=== PATIENT | female | born 1995 | race Caucasian/White ===

== ENCOUNTER → 2017-09-30 17:35 | Outpatient (REF) | payer OTHER, SELFPAY ==
[2017-10-03 15:31] LABS: Neisseria gonorrhoeae, NAA Negative (Negative)
== END ==
LOC: LAB 17:35
PROVIDERS: Visit Provider Nurse Practitioner Obstetrics & Gynecology
DX: Z11.3 Encounter for screening for infections with a predominantly sexual mode of transmission (principal); Z00.00 Encounter for general adult medical examination without abnormal findings
CPT/HCPCS: 87491; 87591

== ENCOUNTER 2019-12-03 06:57 | Emergency (ER) | payer MEDICAID, SELFPAY ==
[2019-12-03 06:58] VITALS: BP 140/82; PULSE 102; RESP 16; TEMP 37.1; O2SAT 98; BMI 22.6
--- NOTE | 2019-12-03 07:14 | US_ITS ---
PROCEDURE: US OB TRANSVAGINAL CLINICAL INDICATION: 8weeks preg vag bleeding COMPARISON: No exams were available for comparison FINDINGS: There is an intrauterine gestational sac with what appears to be a collapsed yolk sac along with an additional thin curvilinear echogenicity. A definite pole is not identified. No heart tones are evident. Cannot confirm viability at this time. Unremarkable adnexa. IMPRESSION: Intrauterine gestational sac with possible collapsed yolk sac. Cannot confirm viability. Recommend follow-up ultrasound as well as correlation with serial beta HCGs Dictated by: Presley Tony MD 12/03/2019 11:03 Electronically signed by Presley Tony MD in [place] 12/03/2019 11:03
[2019-12-03 07:28] LABS: Basophils # 0.1 K/mm3 (0-0.2); Basophils % 0.6 % (0.1-2.0); Eosinophils # 0.5 K/mm3 (0.0-0.4); Eosinophils % 3.7 % (0.1-12.0); Hematocrit 42.4 % (37.0-47.0); Hemoglobin 14.1 g/dL (12.2-16.2); Lymphocytes # 3.9 K/mm3 (0.7-4.5); Lymphocytes % 29.5 % (10-50); Mean Corpuscular HGB Conc 33.4 g/dL (31.8-35.4); Mean Corpuscular Hemoglobin 30.7 pg (27.0-31.2); Mean Platelet Volume 8.5 fl (7.4-10.4); Monocytes # 0.6 K/mm3 (0.1-1.0); Monocytes % 4.3 % (1.7-9.3); Neutrophils # 8.2 K/mm3 (1.8-7.8); Neutrophils % 61.9 % (37.0-80.0); Platelet Count 239 K/mm3 (142-424); Red Blood Count 4.61 M/mm3 (4.20-5.40); Red Cell Distribution Width 12.9 % (11.5-17.5); White Blood Count 13.2 K/mm3 (4.8-10.8)
[2019-12-03 07:34] LABS: Microscopic, Urine URINE MICROSCOPIC (MICROSCOPIC)
[2019-12-03 07:35] LABS: Appearance,Urine CLOUDY (Clear); Bilirubin,Urine Negative (Negative); Blood, Urine 3+ (Negative); Color,Urine YELLOW (Yellow); Glucose,Urine (UA) Negative (Negative); Ketones,Urine Negative (Negative); Leukocyte Esterase,Urine Negative (Negative); Nitrate,Urine Negative (Negative); Protein,Urine Negative (Negative); Specific Gravity, Urine >= 1.030 (1.005-1.030); Urobilinogen,Urine 0.2 EU/dl (0.2)
[2019-12-03 07:37] LABS: Urine Pregnancy, HCG Qual. Positive (Negative)
[2019-12-03 07:45] LABS: HCG,Quantitative 10597 mIU/ml (0-5.42)
[2019-12-03 07:49] LABS: Bacteria,Urine 1+ /lpf; Mucus,Urine Trace /lpf
--- NOTE | 2019-12-03 09:03 | HMH.EDABDPAI ---
ED Disposition Clinical Impression: Vaginal bleeding Disposition: Home, Self-Care Condition on Discharge: Good Instructions: DI for Acute Abdomen Additional Instructions: Your appointment Dr. Prather is this Saturday at 915. Referrals: Provider,Referral, [Primary Care Provider] - - Critical Care Critical Care Time: No Attestation: On 12/03/19, the high probability of a clinically significant, sudden or life threatening deterioration of the following system(s) required my full and direct attention, intervention and personal management. The time I documented below is in addition to time spent performing reported procedures but includes the following listed in this critical care notation. Medical Decision Making - Medical Records Medical records reviewed: Yes: I reviewed the patient's medical records. - Ian Inquiry Pt receiving controlled substance: No Vital Signs: 12/03/19 06:58 Temperature 98.7 F Temperature Source Oral Pulse Rate [Radial] 102 H Respiratory Rate 16 Blood Pressure [Right Arm] 140/82 Blood Pressure Mean [Right Arm] 101 Blood Pressure Position [Right Arm] Sitting 02 Sat by Pulse Oximetry 98 Oxygen Delivery Method Room Air - Lab Data Lab results reviewed: Yes: I reviewed the patient's lab results. Lab Results 12/03/19 07:07: WBC 13.2 H, RBC 4.61, Hgb 14.1, Hct 42.4, MCV 92.0, MCH 30.7, MCHC 33.4, RDW 12.9, Plt Count 239, MPV 8.5, Neut % (Auto) 61.9, Lymph % (Auto) 29.5, [place] % (Auto) 4.3, Eos % (Auto) 3.7, Baso % (Auto) 0.6, Neut # (Auto) 8.2 H, Lymph # (Auto) 3.9, [place] # (Auto) 0.6, Eos # (Auto) 0.5 H, Baso # (Auto) 0.1 12/03/19 07:07: HCG, Quant [id number] H 12/03/19 07:30: Urine Color Yellow, Urine Appearance Cloudy, Urine pH 6.0, Ur Specific [place] >= 1.030, Urine Protein Negative, Urine Glucose (UA) Negative, Urine Ketones Negative, Urine Blood 3+, Urine Nitrate Negative, Urine Bilirubin Negative, Urine Urobilinogen 0.2, Ur Leukocyte Esterase Negative, Urine RBC 10-20, Urine WBC 5-10, Ur Squamous Epith Cells 10-20, Urine Bacteria 1+, Urine Mucus Trace 12/03/19 07:30: Blood Type A Positive 12/03/19 07:30: Urine HCG, Qual Positive Result diagrams: 12/03/19 07:07 Orders (Tests/Meds): ED MEDICATIONS Discontinued Medications Generic Name Dose Route Start Last Admin Trade Name Freq PRN Reason Stop Dose Admin Sodium Chloride 1,000 mls @ 999 mls/hr 12/03/19 07:30 12/03/19 07:23 Sod Chlor 0.9% 1000ml Bag IV 12/03/19 08:30 999 mls/hr .Q1H1M DEEPALI Administration ORDERS Category Date Time Status US OB transvaginal Stat Ultrasound 12/03/19 07:14 Ordered - US Data US Images: Abdomen Findings Narrative: Spoke to the biosolids management technician and stated that she definitely saw a a gestational sac but really could not ascertain if there is a yolk sac present. Patient states that she is about 9 weeks 3 days however this is dating about 6 weeks and 1 day. Could indication that this is the beginning part of a spontaneous . Abdominal Pain HPI - General Chief Complaint: Abdominal Pain Stated Complaint: approx 8 weeks ,bleeding,cramping Time Seen by Provider: 12/03/19 09:00 Mode of Arrival: Ambulatory Source of Information: Patient Limitations: No Limitations Description of Symptoms (Recalled from ER Triage Doc. by RN): to ed per pvt car with c/o abd cramping, vag bleeding with large blood clots starting this am at 1am pt states she is 2 months preg. pt states seen at ED 2 weeks ago due to hx of miscarriage in past and just wanted to make sure everything was ok - History of Present Illness HPI narrative: 24-year-old female comes in with acute onset of some cramping and also some vaginal spotting. Patient thinks that she is approximately about 9 weeks gestation. Patient also states that she does not appointment to see Dr. Prather on 22 December. Otherwise patient is having some mild abdominal cramping other than that no other symptoms. Patien
[2019-12-03 09:24] VITALS: BP 109/79; PULSE 67; RESP 16; TEMP 36.6; O2SAT 99
== END 2019-12-03 09:26 | disposition home or self-care (01) ==
PROVIDERS: Emergency Provider Emergency Medicine
DX: O20.8 Other hemorrhage in early pregnancy (principal); Z3A.08 8 weeks gestation of pregnancy; J45.909 Unspecified asthma, uncomplicated; F17.210 Nicotine dependence, cigarettes, uncomplicated
CPT/HCPCS: 36415; 76817; 81001; 81025; 84702; 85025; 86900; 86901; 96365; 99283

== ENCOUNTER 2020-01-31 02:56 | Emergency (ER) | payer MEDICAID, SELFPAY ==
--- NOTE | 2020-01-31 | ECG_ITS ---
APPROVED REPORT Exam: Resting ECG HR:85 bpm ECG Measurements Heart Rate 85 AXES NV 160 P 77 QRSd 78 QRS 84 QT 348 T 69 QTc 414 <Conclusion> Normal sinus rhythm with sinus arrhythmia Normal ECG Electronically signed by : Jese Bhatt, 02/01/2020 09:07:37
[2020-01-31 03:01] VITALS: BP 131/90; PULSE 99; RESP 22; TEMP 36.7; O2SAT 100; BMI 22.6
--- NOTE | 2020-01-31 03:09 | HMH.EDSOB ---
ED Disposition Clinical Impression: Reactive airway disease Qualifiers: Asthma severity: unspecified severity Asthma persistence: unspecified Asthma complication type: with acute exacerbation Qualified Code(s): J45.901 - Unspecified asthma with (acute) exacerbation Alcohol intoxication Qualifiers: Complication of substance-induced condition: uncomplicated Qualified Code(s): F10.920 - Alcohol use, unspecified with intoxication, uncomplicated Disposition: Home, Self-Care Condition on Discharge: Good Instructions: DI for Shortness of Breath Additional Instructions: see pcp for follow up Prescriptions: predniSONE [Prednisone 20mg Tab] 20 mg PO BID #10 tab Transmission Status: Pending to [facility] #[id number] Referrals: PCP,No [Primary Care Provider] - - Critical Care Critical Care Time: No Attestation: On 01/31/20, the high probability of a clinically significant, sudden or life threatening deterioration of the following system(s) required my full and direct attention, intervention and personal management. The time I documented below is in addition to time spent performing reported procedures but includes the following listed in this critical care notation. Medical Decision Making - Medical Records Medical records reviewed: Yes: I reviewed the patient's medical records. - Ian Inquiry Pt receiving controlled substance: No Vital Signs: 01/31/20 03:01 Temperature 98.0 F Temperature Source Oral Pulse Rate [Right] 99 H Respiratory Rate 22 Blood Pressure [Right Arm] 131/90 Blood Pressure Mean [Right Arm] 103 Blood Pressure Source [Right Arm] Automatic Cuff Blood Pressure Position [Right Arm] Supine 02 Sat by Pulse Oximetry 100 Oxygen Delivery Method Room Air - Lab Data Lab results reviewed: Yes: I reviewed the patient's lab results. Lab Results 01/31/20 03:00: WBC 10.1, RBC 4.39, Hgb 13.8, Hct 41.3, MCV 94.0, MCH 31.4 H, MCHC 33.4, RDW 12.5, Plt Count 222, MPV 8.1, Neut % (Auto) 43.5, Lymph % (Auto) 45.3, [place] % (Auto) 5.1, Eos % (Auto) 5.5, Baso % (Auto) 0.6, Neut # (Auto) 4.4, Lymph # (Auto) 4.6 H, [place] # (Auto) 0.5, Eos # (Auto) 0.6 H, Baso # (Auto) 0.1 01/31/20 03:00: Sodium 145, Potassium 3.9, Chloride 106, Carbon Dioxide 28, Anion Gap 14.9, BUN 8, Creatinine 0.70, Estimated Creat Clear 126, Estimated GFR 105, Est GFR ( Amer) 127, Glucose 101 H, Calcium 9.1, Total Bilirubin 0.2, AST 32, ALT 15, Alkaline Phosphatase 53, C-Reactive Protein 4.5 H, Total Protein 7.7, Albumin 4.6, Globulin 3.1, Albumin/Globulin Ratio 1.5 01/31/20 03:00: Plasma/Serum Alcohol 204 H 01/31/20 03:18: Urine Color Yellow, Urine Appearance Clear, Urine pH 6.0, Ur Specific [place] 1.015, Urine Protein Negative, Urine Glucose (UA) Negative, Urine Ketones Negative, Urine Blood Negative, Urine Nitrate Negative, Urine Bilirubin Negative, Urine Urobilinogen 0.2, Ur Leukocyte Esterase Negative, Ur Squamous Epith Cells Occasional, Amorphous Sediment Trace 01/31/20 03:18: Urine HCG, Qual Negative Result diagrams: 01/31/20 03:00 01/31/20 03:00 Orders (Tests/Meds): ED MEDICATIONS Generic Name Dose Route Start Last Admin Trade Name Freq PRN Reason Stop Dose Admin Sodium Chloride 1,000 mls @ 999 mls/hr 01/31/20 03:15 01/31/20 03:15 Sod Chlor 0.9% 1000ml Bag IV 01/31/20 04:15 999 mls/hr .Q1H1M DEEPALI Administration Sodium Chloride 8 ml 01/31/20 03:11 Sodium Chloride 0.9% 10ml Vial IV 03/01/20 03:10 NEEDED PRN dilute pepcid Discontinued Medications Generic Name Dose Route Start Last Admin Trade Name Freq PRN Reason Stop Dose Admin Diphenhydramine HCl 50 mg 01/31/20 03:11 01/31/20 03:14 Benadryl 50mg/1ml Vial IV 01/31/20 03:12 50 mg ONCE ONE Administration Famotidine 20 mg 01/31/20 03:11 01/31/20 03:14 Pepcid 20mg/2ml Vial IV 01/31/20 03:12 20 mg ONCE ONE Administration Methylprednisolone Sodium Succinate 125 mg 01/31/20 03:11 01/31/20 03:14 Solu-Medrol
--- NOTE | 2020-01-31 03:19 | PC.NURSE ---
Pt here via EMS gasping for air audible wheezing, coughing with choppy respirations. Pt has strong odor of ETOH. EMS states they attempted DuoNeb in route
[2020-01-31 03:28] LABS: Microscopic, Urine URINE MICROSCOPIC (MICROSCOPIC)
[2020-01-31 03:31] LABS: Basophils # 0.1 K/mm3 (0-0.2); Basophils % 0.6 % (0.1-2.0); Eosinophils # 0.6 K/mm3 (0.0-0.4); Eosinophils % 5.5 % (0.1-12.0); Hematocrit 41.3 % (37.0-47.0); Hemoglobin 13.8 g/dL (12.2-16.2); Lymphocytes # 4.6 K/mm3 (0.7-4.5); Lymphocytes % 45.3 % (10-50); Mean Corpuscular HGB Conc 33.4 g/dL (31.8-35.4); Mean Corpuscular Hemoglobin 31.4 pg (27.0-31.2); Mean Platelet Volume 8.1 fl (7.4-10.4); Monocytes # 0.5 K/mm3 (0.1-1.0); Monocytes % 5.1 % (1.7-9.3); Neutrophils # 4.4 K/mm3 (1.8-7.8); Neutrophils % 43.5 % (37.0-80.0); Platelet Count 222 K/mm3 (142-424); Red Blood Count 4.39 M/mm3 (4.20-5.40); Red Cell Distribution Width 12.5 % (11.5-17.5); White Blood Count 10.1 K/mm3 (4.8-10.8)
[2020-01-31 03:33] LABS: Appearance,Urine CLEAR (Clear); Bilirubin,Urine Negative (Negative); Blood, Urine Negative (Negative); Color,Urine YELLOW (Yellow); Glucose,Urine (UA) Negative (Negative); Ketones,Urine Negative (Negative); Leukocyte Esterase,Urine Negative (Negative); Nitrate,Urine Negative (Negative); Protein,Urine Negative (Negative); Specific Gravity, Urine 1.015 (1.005-1.030); Urobilinogen,Urine 0.2 EU/dl (0.2)
[2020-01-31 03:36] LABS: Alanine Aminotransferase 15 U/L (12-78); Albumin Level 4.6 g/dl (3.5-5.0); Albumin/Globulin Ratio 1.5 (1.1-1.8); Alkaline Phosphatase 53 U/L (38-126); Anion Gap 14.9 mEq/L (5-15); Aspartate Amino Transferase 32 U/L (14-36); Bilirubin,Total 0.2 mg/dl (0.2-1.3); Blood Urea Nitrogen 8 mg/dl (7-17); Calcium 9.1 mg/dl (8.4-10.2); Carbon Dioxide 28 mmol/L (22.0-30.0); Chloride 106 mmol/L (98-107); Creatinine Clearance Estimated 126 mL/min (50-200); Estimated Glomerular Filt Rate 105 ml/min (>60); GFR (African American) 127 ML/MIN (>60); Globulin 3.1 g/dL (1.3-3.2); Glucose 101 mg/dl (74-100); Potassium 3.9 mmoL/L (3.5-5.1); Sodium 145 mmol/L (136-145); Total Protein,Serum 7.7 g/dl (6.3-8.2)
[2020-01-31 03:36] LABS: Urine Pregnancy, HCG Qual. Negative (Negative)
[2020-01-31 03:37] LABS: Ethyl Alcohol 204 mg/dl (0-10)
[2020-01-31 03:37] LABS: Amorphous Sediment,Urine Trace /lpf; Squamous Epithelial Cell,Urine Occasional #/hpf (0-5)
[2020-01-31 03:41] LABS: C-Reactive Protein 4.5 mg/L (0-4)
[2020-01-31 03:43] LABS: Barbiturates Screen,Urine Negative ng/ml (<200); Benzodiazepines Screen,Urine Negative ng/ml (<200)
[2020-01-31 03:44] LABS: Amphetamine/Metha Screen,Urine Negative ng/ml (<1000)
[2020-01-31 03:45] LABS: Cocaine Screen,Urine Negative ng/ml (<300); Methadone Screen,Urine Negative ng/ml (<300)
[2020-01-31 03:46] LABS: Cannabinoid Screen,Urine Positive ng/ml (<50)
[2020-01-31 03:47] LABS: Opiate Screen,Urine Negative ng/ml (<300); Phencyclidine Screen,Urine Negative ng/ml (<25)
--- NOTE | 2020-01-31 03:49 | PC.NURSE ---
Pt refused chest x-ray
[2020-01-31 04:02] VITALS: BP 103/56; PULSE 75; RESP 12; TEMP 36.7; O2SAT 97
[2020-01-31 04:17] LABS: Erythrocyte Sedimentation Rate 13 mm/hr (0-20)
== END 2020-01-31 04:06 | disposition home or self-care (01) ==
PROVIDERS: Emergency Provider Emergency Medicine; PCP Internal Medicine
DX: J45.901 Unspecified asthma with (acute) exacerbation (principal); F10.920 Alcohol use, unspecified with intoxication, uncomplicated; F17.210 Nicotine dependence, cigarettes, uncomplicated; Z88.2 Allergy status to sulfonamides; Z90.09 Acquired absence of other part of head and neck; Z90.49 Acquired absence of other specified parts of digestive tract
CPT/HCPCS: 80053; 80305; 81001; 81025; 85025; 85651; 86140; 93005; 96365; 96375; 99283

== ENCOUNTER → 2020-09-23 13:04 | Outpatient (CLI) | payer MEDICAID, SELFPAY | PROVIDERS: Visit Provider Nurse Practitioner Family | DX: Z20.822 Contact with and (suspected) exposure to COVID-19 (principal); J02.9 Acute pharyngitis, unspecified | CPT/HCPCS: U0003 ==

== ENCOUNTER → 2020-10-03 12:07 | Outpatient (CLI) | payer MEDICAID, SELFPAY ==
[2020-10-03 18:49] LABS: HCG,Quantitative 68 mIU/ml (0-5.42)
== END ==
PROVIDERS: Visit Provider Obstetrics & Gynecology
DX: Z34.90 Encounter for supervision of normal pregnancy, unspecified, unspecified trimester (principal)
CPT/HCPCS: 36415; 84702

== ENCOUNTER → 2020-10-05 13:35 | Outpatient (CLI) | payer MEDICAID, SELFPAY ==
[2020-10-05 15:29] LABS: HCG,Quantitative 166 mIU/ml (0-5.42)
== END ==
PROVIDERS: Visit Provider Obstetrics & Gynecology
DX: Z34.90 Encounter for supervision of normal pregnancy, unspecified, unspecified trimester (principal)
CPT/HCPCS: 36415; 84702

== ENCOUNTER → 2020-10-14 14:55 | Outpatient (CLI) | payer MEDICAID, SELFPAY ==
--- NOTE | 2020-10-14 15:02 | US_ITS ---
PROCEDURE: US OB <= 14 WEEKS FETUS CLINICAL INDICATION: Dates COMPARISON: US US OB TRANSVAGINAL from 12/03/2019 FINDINGS: There is an intrauterine gestational sac with a yolk sac noted. A pole however is not identified. Unremarkable adnexa. No cul-de-sac fluid apparent. IMPRESSION: Intrauterine gestational sac with yolk sac but no obvious pole. Cannot confirm viability. Suggest follow-up ultrasound as well as correlation with beta HCG Dictated by: Presley Tony MD 10/14/2020 17:45 Presley Tony MD in [place] 10/14/2020 17:45
== END ==
PROVIDERS: Visit Provider Obstetrics & Gynecology
DX: Z34.90 Encounter for supervision of normal pregnancy, unspecified, unspecified trimester (principal)
CPT/HCPCS: 76801

== ENCOUNTER 2020-10-17 09:44 | Emergency (ER) | payer MEDICAID, SELFPAY ==
[2020-10-17 09:45] VITALS: BP 123/71; PULSE 68; RESP 18; TEMP 37; O2SAT 96; BMI 22.6
--- NOTE | 2020-10-17 09:57 | HMH.EDGENADL ---
ED Disposition Clinical Impression: Vaginal spotting, Cramping affecting , antepartum, Tobacco abuse counseling Disposition: Home, Self-Care Condition on Discharge: Good Referrals: PCP,Shantell [Primary Care Provider] - Ayanna Sky MD [Staff Physician] - 10/17/20 (Call for follow-up appointment) Time of Disposition: 10:31 - Critical Care Critical Care Time: No Attestation: On 10/17/20, the high probability of a clinically significant, sudden or life threatening deterioration of the following system(s) required my full and direct attention, intervention and personal management. The time I documented below is in addition to time spent performing reported procedures but includes the following listed in this critical care notation. Medical Decision Making - Medical Records Medical records reviewed: Yes: I reviewed the patient's medical records. - Ian Inquiry Pt receiving controlled substance: No Vital Signs: 10/17/20 09:45 Temperature 98.6 F Temperature Source Oral Pulse Rate [Left Radial] 68 Respiratory Rate 18 Blood Pressure [Right Arm] 123/71 Blood Pressure Mean [Right Arm] 88 Blood Pressure Source [Right Arm] Automatic Cuff Blood Pressure Position [Right Arm] Sitting 02 Sat by Pulse Oximetry 96 Oxygen Delivery Method Room Air Medical Decision Narrative: 25yo F evaluated for cramping and spotting last night. Patient is in no acute distress on initial evaluation. Her physical exam is unremarkable. Offered a pelvic exam but discussed with the patient they would have little impact on her treatment today. Patient is approximately 7 weeks along with recent ultrasound showing yolk sac without pole. Patient is supposed to have outpatient blood work completed today for her OB, Dr. Sky. Patient declines pelvic exam as there is little to be done regarding the result of the exam. I do not see an indication for repeat ultrasound as the patient had one approximately 2 days ago. Encourage the patient to follow-up with her OB via phone today for further instruction. Patient voiced understanding and agreed with the plan. I also spent greater than 10 minutes discussing tobacco abuse with the patient and strategies for quitting. General Adult HPI - General Stated complaint: bleeding, abd pain, 4 weeks preg Time Seen by Provider: 10/17/20 09:57 Mode of Arrival: Ambulatory Source of Information: Patient - History of Present Illness HPI narrative: 25yo F with past medical history of 2 spontaneous abortions and is currently a G3, P0 at approximately 7 weeks presents the emergency department secondary to vaginal spotting last night and worse cramping today. Patient underwent ultrasound on Saturday that revealed a yolk sac with no pole. Patient states her current symptoms are very similar to previous abortions. Patient has never required a D&C or medical management of spontaneous . She denies any fever. She endorses mild nausea without vomiting. She denies diarrhea. - Related Data Home Medications Medication Instructions Recorded Confirmed albuterol sulfate 90 mcg/actuation 2 puff INHALATION Q6H PRN 12/07/19 09/23/20 aerosol inhaler Previous Rx's Medication Instructions Recorded cfnitufjifcxbic-pacnawgrmirimau-CA 10 ml PO Q4-6H PRN 7 Days #118 ml 09/23/20 1 mg-15 mg-5 mg/5 mL oral elixir Allergies Allergy/AdvReac Type Severity Reaction Status Date / Time sulfamethoxazole Allergy Intermediate i-hives Verified 09/23/20 12:08 [From Bactrim] trimethoprim [From Bactrim] Allergy Intermediate i-hives Verified 09/23/20 12:08 amoxicillin Allergy Mild Verified 09/23/20 12:08 [facility] History - Hepatitis A Screen Drug use history?: No Attestation statement:: This patient has been screened for Hepatitis A risk factors. I have reviewed the patient's past medical history: Yes Medical History: Reports:: Asthma Denies:: Anxiety, Depression, Diabetes Mellitus Type 1, D
[2020-10-17 10:41] VITALS: BP 110/66; PULSE 84; RESP 18; TEMP 37; O2SAT 100
== END 2020-10-17 10:42 | disposition home or self-care (01) ==
PROVIDERS: Emergency Provider Family Medicine
DX: O26.851 Spotting complicating pregnancy, first trimester (principal); Z3A.01 Less than 8 weeks gestation of pregnancy; J45.909 Unspecified asthma, uncomplicated; F17.210 Nicotine dependence, cigarettes, uncomplicated; Z71.6 Tobacco abuse counseling
CPT/HCPCS: 99281

== ENCOUNTER → 2020-10-19 14:59 | Outpatient (CLI) | payer MEDICAID, SELFPAY ==
[2020-10-19 17:26] LABS: HCG,Quantitative 12667 mIU/ml (0-5.42)
== END ==
PROVIDERS: Visit Provider Obstetrics & Gynecology
DX: Z34.90 Encounter for supervision of normal pregnancy, unspecified, unspecified trimester (principal)
CPT/HCPCS: 36415; 84702

== ENCOUNTER → 2020-10-24 09:50 | Outpatient (CLI) | payer MEDICAID, SELFPAY ==
--- NOTE | 2020-10-24 09:51 | US_ITS ---
PROCEDURE: US OB <= 14 WEEKS FETUS CLINICAL INDICATION: COMPARISON: US US OB <= 14 WEEKS FETUS from 10/14/2020 FINDINGS: An intrauterine gestational sac is present with a pole with a crown-rump length of 0.76cm correlating to gestational age of 6weeks 5days. heart tones are present with an FHR of 118bpm. Yolk sac is noted. Right-sided corpus luteum is present 2.8 cm IMPRESSION: Live IUP at 6 weeks 5 days Estimated due date by Ultrasound is 06/14/2021 Dictated by: Presley Tony MD 10/24/2020 18:44 Presley Tony MD in [place] 10/24/2020 18:44
== END ==
PROVIDERS: Visit Provider Obstetrics & Gynecology
DX: Z34.90 Encounter for supervision of normal pregnancy, unspecified, unspecified trimester (principal)
CPT/HCPCS: 76801

== ENCOUNTER → 2020-11-21 10:57 | Outpatient (CLI) | payer MEDICAID, SELFPAY ==
[2020-11-21 11:56] LABS: Basophils % 0.2 % (0.1-2.0); Eosinophils # 0.2 K/mm3 (0.0-0.4); Eosinophils % 2.4 % (0.1-12.0); Hematocrit 40.7 % (37.0-47.0); Lymphocytes # 2.1 K/mm3 (0.7-4.5); Lymphocytes % 21.4 % (10-50); Mean Corpuscular Hemoglobin 29.9 pg (27.0-31.2); Mean Corpuscular Volume 93.3 fl (81-99); Mean Platelet Volume 8.9 fl (7.4-10.4); Monocytes # 0.5 K/mm3 (0.1-1.0); Monocytes % 4.7 % (1.7-9.3); Neutrophils # 7.1 K/mm3 (1.8-7.8); Neutrophils % 71.3 % (37.0-80.0); Platelet Count 203 K/mm3 (142-424); Red Blood Count 4.36 M/mm3 (4.20-5.40); Red Cell Distribution Width 12.1 % (11.5-17.5)
[2020-11-22 09:19] LABS: HIV Screen 4th Generation wRfx Non Reactive (Non Reactive)
[2020-11-22 10:38] LABS: Hepatitis B Surface Antigen Negative (Negative); Hepatitis C Antibody <0.1 s/co ratio (0.0-0.9); Rubella Antibodies, IgG 1.86 index (Immune >0.99)
[2020-11-22 11:09] LABS: Rapid Plasma Reagin Ab Titer Non Reactive (NonRea<1:1)
[2020-12-03 17:04] LABS: Neisseria gonorrhoeae, NAA NEGATIVE
== END ==
PROVIDERS: Visit Provider Obstetrics & Gynecology
DX: Z34.90 Encounter for supervision of normal pregnancy, unspecified, unspecified trimester (principal)
CPT/HCPCS: 36415; 85025; 86592; 86703; 86762; 86850; 87340; 87380; 87491; 87591; G0432

== ENCOUNTER → 2020-11-21 15:28 | Outpatient (CLI) | payer MEDICAID, SELFPAY | PROVIDERS: Visit Provider Obstetrics & Gynecology | DX: Z34.90 Encounter for supervision of normal pregnancy, unspecified, unspecified trimester (principal) | CPT/HCPCS: 87491; 87591 ==

== ENCOUNTER → 2020-12-01 19:08 | Outpatient (CLI) | payer MEDICAID, SELFPAY | PROVIDERS: Visit Provider Nurse Practitioner Family | DX: Z20.822 Contact with and (suspected) exposure to COVID-19 (principal); J02.9 Acute pharyngitis, unspecified | CPT/HCPCS: U0003 ==

== ENCOUNTER → 2021-01-20 10:20 | Outpatient (CLI) | payer MEDICAID, SELFPAY ==
--- NOTE | 2021-01-20 10:23 | US_ITS ---
PROCEDURE: US OB >= 14 WEEKS FETUS CLINICAL INDICATION: OB complete Anatomy exam COMPARISON: US US OB <= 14 WEEKS FETUS from 10/24/2020 FINDINGS: Single viable intrauterine gestation. Cephalic position. Placenta: Posterior and fundal trauma grade 1. There is average amount fluid. The cervix appears satisfactory. Closed and measuring 4 cm in length. Complete survey performed and was unremarkable on the submitted images as in PACS. No discrete anomalies identified on survey imaging by technologist. Active fetus. Three-vessel cord with satisfactory umbilical cord insertion. 4- chamber heart noted. Survey of brain & ventricles Unremarkable. Face and neck survey unremarkable. Diaphragm and chest views unremarkable. Abdomen: Both kidneys noted and unremarkable. Stomach noted and satisfactory. Spine: Survey of the spine satisfactory with no anomalies identified nor imaged. Both arms and legs noted. Amniotic Fluid: Adequate. Maternal adnexa: No significant findings. Measurements: Average ultrasound age 19weeks 2days. Gestational Age 19weeks 2days Estimated due date by ultrasound age 1206/14/2021. Estimated weight 292g BPD = 19weeks 2days OFD = 19weeks 2days HC = 18weeks 4days AC = 19weeks 4days FL = 19weeks 4days Growth Percentile= 54% Heart Rate = 150bpm Cerebellum = 19weeks 4days Humerus = 19weeks 5days HC/AC is 1.1 CI is 0.79 FL/BPD is 0.71 FL/AC is 0.22 IMPRESSION: Live IUP at 19 weeks 2 days. All parameters correlate with no obvious anomalies. Please see above for detail Dictated by: Presley Tony MD 01/20/2021 11:51 Presley Tony MD in [place] 01/20/2021 11:51
== END ==
PROVIDERS: PCP Internal Medicine; Visit Provider Obstetrics & Gynecology
DX: Z34.90 Encounter for supervision of normal pregnancy, unspecified, unspecified trimester (principal)
CPT/HCPCS: 76805

== ENCOUNTER 2021-01-22 12:08 | Emergency (ER) | payer MEDICAID, SELFPAY ==
--- NOTE | 2021-01-22 | ECG_ITS ---
APPROVED REPORT Exam: Resting ECG HR:72 bpm ECG Measurements Heart Rate 72 AXES LA 144 P 41 QRSd 82 QRS 49 QT 392 T 50 QTc 429 Conclusion Normal sinus rhythm Normal ECG Electronically signed by : Will Fair, 01/23/2021 22:13:34
[2021-01-22 12:09] VITALS: BP 125/75; PULSE 83; RESP 18; TEMP 36.8; O2SAT 100; BMI 21.7
--- NOTE | 2021-01-22 12:29 | HMH.EDGENADL ---
ED Disposition Clinical Impression: Dizziness Disposition: Home, Self-Care Condition on Discharge: Good Instructions: Dizziness, Nonvertigo Additional Instructions: Drink plenty of fluids. Keflex as prescribed until urine culture results obtained. Follow-up urine culture result with your primary care provider or [facility]AN[employer] REPRESENTATIVE in 2 to 3 days. Prescriptions: cephALEXin [cephALEXin 250mg capsule] 250 mg PO Q6H #28 cap Transmission Status: Pending to [employer] #[id number] Referrals: Alec Regan MD [Primary Care Provider] - - Critical Care Critical Care Time: No Attestation: On 01/22/21, the high probability of a clinically significant, sudden or life threatening deterioration of the following system(s) required my full and direct attention, intervention and personal management. The time I documented below is in addition to time spent performing reported procedures but includes the following listed in this critical care notation. Medical Decision Making - Ian Inquiry Pt receiving controlled substance: No Vital Signs: 01/22/21 12:09 01/22/21 12:50 01/22/21 13:00 Temperature 98.3 F Temperature Source Oral Pulse Rate 62 Pulse Rate [Right] 83 Respiratory Rate 18 Blood Pressure 107/61 L Blood Pressure [Orthostatic Lying] 103/55 L Blood Pressure [Orthostatic Sitting] 115/68 Blood Pressure [Orthostatic Standing] 108/67 L Blood Pressure [Right Arm] 125/75 Blood Pressure Mean 70 Blood Pressure Mean [Right Arm] 91 Blood Pressure Source [Right Arm] Automatic Cuff 02 Sat by Pulse Oximetry 100 99 Oxygen Delivery Method Room Air 01/22/21 13:31 Temperature Temperature Source Pulse Rate 66 Pulse Rate [Right] Respiratory Rate Blood Pressure 111/64 Blood Pressure [Orthostatic Lying] Blood Pressure [Orthostatic Sitting] Blood Pressure [Orthostatic Standing] Blood Pressure [Right Arm] Blood Pressure Mean 71 Blood Pressure Mean [Right Arm] Blood Pressure Source [Right Arm] 02 Sat by Pulse Oximetry 99 Oxygen Delivery Method - Lab Data Lab Results 01/22/21 12:30: WBC 13.8 H, RBC 4.10 L, Hgb 12.6, Hct 37.1, MCV 90.5, MCH 30.7, MCHC 33.9, RDW 13.6, Plt Count 203, MPV 8.4, Neut % (Auto) 77.6, Lymph % (Auto) 16.6, [place] % (Auto) 4.0, Eos % (Auto) 1.5, Baso % (Auto) 0.4, Neut # (Auto) 10.7 H, Lymph # (Auto) 2.3, [place] # (Auto) 0.6, Eos # (Auto) 0.2, Baso # (Auto) 0.1 01/22/21 12:30: Sodium 138, Potassium 3.7, Chloride 106, Carbon Dioxide 25, Anion Gap 10.7, BUN 6 L, Creatinine 0.40 L, Estimated Creat Clear 211, Estimated GFR 198, Est GFR ( Amer) 239, Glucose 86, Calcium 9.0, Total Bilirubin 0.4, AST 26, ALT 17, Alkaline Phosphatase 49, Total Protein 6.6, Albumin 4.0, Globulin 2.6, Albumin/Globulin Ratio 1.5 01/22/21 13:12: Urine Color Yellow, Urine Appearance Clear, Urine pH 7.0, Ur Specific [place] 1.020, Urine Protein Negative, Urine Glucose (UA) Negative, Urine Ketones Negative, Urine Blood Negative, Urine Nitrate Positive, Urine Bilirubin Negative, Urine Urobilinogen 0.2, Ur Leukocyte Esterase Negative, Urine RBC 3-5, Urine WBC 3-5, Urine Bacteria 1+ 01/22/21 13:12: Urine Opiates Screen Negative, Urine Methadone Screen Negative, Ur Barbituates Screen Negative, Ur Phencyclidine Scrn Negative, Ur Amphetamines Screen Negative, U Benzodiazepines Scrn Negative, Urine Cocaine Screen Negative, U Marijuana (THC) Screen Positive H Result diagrams: 01/22/21 12:30 01/22/21 12:30 Orders (Tests/Meds): ED MEDICATIONS Discontinued Medications Generic Name Dose Route Start Last Admin Trade Name Rylandq PRN Reason Stop Dose Admin Sodium Chloride 1,000 ml 01/22/21 12:50 01/22/21 12:56 Sodium Chloride 0.9% 1000ml Bag IV 01/22/21 12:51 1,000 ml BOLUS ONE Administration ORDERS Category Date Time Status Urine Culture Routine Micro 01/22/21 13:12 Received - ECG Data Tracing #1 EKG interpreted by Kirill Dunham MD: Rhythm: sinus Rate: 72 Ax
[2021-01-22 12:50] VITALS: BP 103/55; BP 108/67; BP 115/68
[2021-01-22 12:53] LABS: Microscopic, Urine URINE MICROSCOPIC (MICROSCOPIC)
[2021-01-22 13:00] VITALS: BP 107/61; PULSE 62; O2SAT 99
[2021-01-22 13:00] LABS: Basophils # 0.1 K/mm3 (0-0.2); Basophils % 0.4 % (0.1-2.0); Eosinophils # 0.2 K/mm3 (0.0-0.4); Eosinophils % 1.5 % (0.1-12.0); Hematocrit 37.1 % (37.0-47.0); Hemoglobin 12.6 g/dL (12.2-16.2); Lymphocytes # 2.3 K/mm3 (0.7-4.5); Lymphocytes % 16.6 % (10-50); Mean Corpuscular HGB Conc 33.9 g/dL (31.8-35.4); Mean Corpuscular Hemoglobin 30.7 pg (27.0-31.2); Mean Corpuscular Volume 90.5 fl (81-99); Mean Platelet Volume 8.4 fl (7.4-10.4); Monocytes # 0.6 K/mm3 (0.1-1.0); Neutrophils # 10.7 K/mm3 (1.8-7.8); Neutrophils % 77.6 % (37.0-80.0); Platelet Count 203 K/mm3 (142-424); Red Cell Distribution Width 13.6 % (11.5-17.5); White Blood Count 13.8 K/mm3 (4.8-10.8)
[2021-01-22 13:10] LABS: Alanine Aminotransferase 17 U/L (12-78); Albumin/Globulin Ratio 1.5 (1.1-1.8); Alkaline Phosphatase 49 U/L (38-126); Anion Gap 10.7 mEq/L (5-15); Aspartate Amino Transferase 26 U/L (14-36); Bilirubin,Total 0.4 mg/dl (0.2-1.3); Blood Urea Nitrogen 6 mg/dl (7-17); Carbon Dioxide 25 mmol/L (22.0-30.0); Chloride 106 mmol/L (98-107); Creatinine Clearance Estimated 211 mL/min (50-200); Estimated Glomerular Filt Rate 198 ml/min (>60); GFR (African American) 239 ML/MIN (>60); Globulin 2.6 g/dL (1.3-3.2); Glucose 86 mg/dl (74-100); Potassium 3.7 mmoL/L (3.5-5.1); Sodium 138 mmol/L (136-145); Total Protein,Serum 6.6 g/dl (6.3-8.2)
[2021-01-22 13:31] VITALS: BP 111/64; PULSE 66; O2SAT 99
[2021-01-22 13:56] LABS: Appearance,Urine CLEAR (Clear); Bilirubin,Urine Negative (Negative); Blood, Urine Negative (Negative); Color,Urine YELLOW (Yellow); Glucose,Urine (UA) Negative (Negative); Ketones,Urine Negative (Negative); Leukocyte Esterase,Urine Negative (Negative); Nitrate,Urine POSITIVE (Negative); Protein,Urine Negative (Negative); Urobilinogen,Urine 0.2 EU/dl (0.2)
[2021-01-22 14:08] LABS: Barbiturates Screen,Urine Negative ng/ml (<200)
[2021-01-22 14:09] LABS: Benzodiazepines Screen,Urine Negative ng/ml (<200)
[2021-01-22 14:10] LABS: Amphetamine/Metha Screen,Urine Negative ng/ml (<1000)
[2021-01-22 14:12] LABS: Methadone Screen,Urine Negative ng/ml (<300)
[2021-01-22 14:13] LABS: Cannabinoid Screen,Urine Positive ng/ml (<50); Cocaine Screen,Urine Negative ng/ml (<300)
[2021-01-22 14:14] LABS: Opiate Screen,Urine Negative ng/ml (<300)
[2021-01-22 14:15] LABS: Bacteria,Urine 1+ /lpf; Phencyclidine Screen,Urine Negative ng/ml (<25)
[2021-01-22 14:34] VITALS: BP 104/57; PULSE 68; RESP 16; TEMP 36.7; O2SAT 99
== END 2021-01-22 14:35 | disposition home or self-care (01) ==
PROVIDERS: Emergency Provider Emergency Medicine; PCP Internal Medicine
DX: R42 Dizziness and giddiness (principal); F12.10 Cannabis abuse, uncomplicated; Z3A.19 19 weeks gestation of pregnancy
CPT/HCPCS: 80053; 80305; 81001; 85025; 87086; 93005; 96365; 99284

== ENCOUNTER 2021-01-25 12:49 | Emergency (ER) | payer MEDICAID, SELFPAY ==
[2021-01-25 12:50] VITALS: BP 136/80; PULSE 90; RESP 18; TEMP 37.2; O2SAT 98; BMI 20.9
[2021-01-25 13:20] LABS: Microscopic, Urine URINE MICROSCOPIC (MICROSCOPIC)
[2021-01-25 13:23] LABS: Appearance,Urine SL CLOUDY (Clear); Bilirubin,Urine Negative (Negative); Blood, Urine Negative (Negative); Color,Urine AMBER (Yellow); Glucose,Urine (UA) Negative (Negative); Ketones,Urine 1+ (Negative); Leukocyte Esterase,Urine Negative (Negative); Nitrate,Urine Negative (Negative); PH,Urine 5.5 (5.0-8.5); Protein,Urine TRACE (Negative); Specific Gravity, Urine >= 1.030 (1.005-1.030); Urobilinogen,Urine 0.2 EU/dl (0.2)
[2021-01-25 14:00] VITALS: BP 111/64; PULSE 77; RESP 18; O2SAT 99
--- NOTE | 2021-01-25 14:21 | HMH.EDGENADL ---
ED Disposition Clinical Impression: Pelvic cramping Qualifiers: Weeks of gestation: 19 weeks Qualified Code(s): Z3A.19 - 19 weeks gestation of Disposition: Home, Self-Care Condition on Discharge: Good Additional Instructions: Follow-up with Dr. Sky in the office, call for appointment. Return to the emergency room if worsening pain or if vaginal bleeding or new symptoms such as fever. You may stop taking antibiotic. Referrals: Provider,Referral, [Primary Care Provider] - - Critical Care Critical Care Time: No Attestation: On 01/25/21, the high probability of a clinically significant, sudden or life threatening deterioration of the following system(s) required my full and direct attention, intervention and personal management. The time I documented below is in addition to time spent performing reported procedures but includes the following listed in this critical care notation. Medical Decision Making - Medical Records Medical records reviewed: Yes: I reviewed the patient's medical records. MR Comment: I saw the patient in the emergency department recently for dizziness. She had a urine analysis questionable for UTI. I reviewed culture result which showed multiple organisms suggestive of contamination. - Ian Inquiry Pt receiving controlled substance: No Vital Signs: 01/25/21 12:50 01/25/21 14:00 01/25/21 14:30 Temperature 98.9 F Temperature Source Oral Pulse Rate 77 68 Pulse Rate [Right Radial] 90 Respiratory Rate 18 18 18 Blood Pressure 111/64 105/68 L Blood Pressure [Right Arm] 136/80 Blood Pressure Mean 78 82 Blood Pressure Mean [Right Arm] 98 Blood Pressure Source [Right Arm] Automatic Cuff Blood Pressure Position [Right Arm] Sitting 02 Sat by Pulse Oximetry 98 99 98 Oxygen Delivery Method Room Air Room Air - Lab Data Lab Results 01/25/21 13:00: Urine Color [place], Urine Appearance Sl cloudy, Urine pH 5.5, Ur Specific [place] >= 1.030, Urine Protein Trace, Urine Glucose (UA) Negative, Urine Ketones 1+, Urine Blood Negative, Urine Nitrate Negative, Urine Bilirubin Negative, Urine Urobilinogen 0.2, Ur Leukocyte Esterase Negative, Urine RBC 5-10, Urine WBC 3-5, Ur Squamous Epith Cells 5-10, Urine Bacteria None - Physician Consults Physician Consulted: Jose Daniel Time: 15:19 Reason -: Obstetrical Eval/Care Comment/Response: Discussed case. Discharged for outpatient follow-up. General Adult HPI - General Chief complaint: OB/Uterine Contractions Stated complaint: 20wks preg several abd cramps Time Seen by Provider: 01/25/21 14:21 Mode of Arrival: Ambulatory Limitations: No Limitations Description of Symptoms (Recalled from ER Triage Doc. by RN): Pt reports woke up not feeling well. Pt reports around 10 am she began having lower abd cramping. Pt reports normally has morning sickness with vomitting when she first wakes up but reports she has vomitted 5 times today, states this is not normal for her. Pt reports she is 20 weeks gestation, states she is currently being treated for UTI. - History of Present Illness HPI narrative: The patient is 2, Ab1, 1 8 weeks gestation and complains of suprapubic cramping that began at 10 AM. States she had to leave work. States she is voiding in small amounts, otherwise no urinary symptoms. No fever, vomiting, or diarrhea. She says that she called her management and budget analyst, Dr. Sky, but she was not in the office today. Office staff advised to come to the labor and delivery department, but they sent her to the emergency room because she is 19 weeks, 5 days, not yet 20 weeks gestation. - Related Data Home Medications Medication Instructions Recorded Confirmed albuterol sulfate 90 mcg/actuation 2 puff INHALATION Q6H PRN 12/07/19 01/22/21 aerosol inhaler Vit Calc,Iron,Folic [Kpn] 1 tab PO DAILY 01/22/21 01/22/21 Previous Rx's Medication Instructions Recorded ondansetron 4 mg dis
[2021-01-25 14:30] VITALS: BP 105/68; PULSE 68; RESP 18; O2SAT 98
--- NOTE | 2021-01-25 14:43 | PC.NURSE ---
accompanied ER MD during pelvic exam at this time
--- NOTE | 2021-01-25 15:24 | PC.NURSE ---
Dr Dunham spoke with Dr Sky
[2021-01-25 15:34] VITALS: BP 108/60; PULSE 70; RESP 18; TEMP 37.2; O2SAT 100
== END 2021-01-25 15:34 | disposition home or self-care (01) ==
PROVIDERS: Emergency Provider Emergency Medicine
DX: R10.2 Pelvic and perineal pain (principal); Z3A.19 19 weeks gestation of pregnancy; F17.210 Nicotine dependence, cigarettes, uncomplicated; F12.10 Cannabis abuse, uncomplicated
CPT/HCPCS: 81001; 99283

== ENCOUNTER → 2021-01-27 10:19 | Outpatient (CLI) | payer MEDICAID, SELFPAY ==
[2021-01-30 20:36] LABS: Neisseria gonorrhoeae, NAA Negative (Negative)
== END ==
LOC: LAB 10:20 → LAB.DROPOF 10:20
PROVIDERS: Visit Provider Obstetrics & Gynecology
DX: Z34.90 Encounter for supervision of normal pregnancy, unspecified, unspecified trimester (principal)
CPT/HCPCS: 36415; 87491; 87591

== ENCOUNTER 2021-02-16 09:33 | Emergency (ER) | payer MEDICAID, SELFPAY ==
[2021-02-16 09:34] VITALS: BP 125/82; PULSE 115; RESP 20; TEMP 37.2; O2SAT 100; BMI 22.6
--- NOTE | 2021-02-16 10:29 | HMH.EDUTC ---
[facility] – [place] Disposition Clinical Impression: Encounter for laboratory testing for COVID-19 virus, Viral syndrome Disposition: Home, Self-Care Condition on Discharge: Good Instructions: DI for COVID-19 (Suspected or Confirmed ), Preventing the Spread of Coronavirus Discharge Instructions Additional Instructions: *Monitor Temp, Over the counter Motrin or Tylenol as directed/as needed Tylenol every 4 hours and Motrin every 6 hours (as long as your family doctor has told you that you can take it) for fever or pain. and straight to ER if unable to lower temp less than 101.0 after medication given *Warm salt water gargles may help to soothe the throat *Throat Lozenges *Warm fluids like tea with honey may help to soothe the throat *Sleep elevated *Humidifier/Vaporizer Follow up IMMEDIATELY for new or worsening symptoms or no Noticeable improvement over the next 48-72 hours. 911 for difficulty breathing or swallowing You were tested for today for COVID19 your test result should be back in the next 24-48 hours, you may call to the [facility] to see if your test results are back in the next 48 hours [phone] [facility] hours are 9am-9pm You was given a handout with instructions for Self Quarantine and Self isolation for while you wait on test results and what to do if they are positive If you are positive the Health Dept will be contacting you also Referrals: Provider,Referral, MD [Primary Care Provider] - As needed Forms: Work/School Release Medical Decision Making - Ian Inquiry Pt receiving controlled substance: No Ian was queried for this patient: No Vital Signs: 02/16/21 09:34 Temperature 98.9 F Temperature Source Oral Pulse Rate [Left Radial] 115 H Respiratory Rate 20 Blood Pressure [Right Arm] 125/82 Blood Pressure Mean [Right Arm] 96 Blood Pressure Source [Right Arm] Automatic Cuff Blood Pressure Position [Right Arm] Sitting 02 Sat by Pulse Oximetry 100 Oxygen Delivery Method Room Air - Lab Data Lab results reviewed: Yes: I reviewed the patient's lab results. Orders (Tests/Meds): ORDERS Category Date Time Status Covid-19 Nasal PCR ([facility]) Routine Lab 02/16/21 09:47 Received [facility] [place] HPI - General Stated complaint: covid test, fever Time Seen by Provider: 02/16/21 10:29 Mode of Arrival: Ambulatory Source of Information: Patient Limitations: No Limitations Description of Symptoms (Recalled from Triage Doc. by RN): c/o fever, cough and runny nose for 3 days HEENT Symptoms (Recalled from RN notes): Yes Resp Symptoms (Recalled from RN notes): No Skin Symptoms (Recalled from RN notes): No MS Symptoms (Recalled from RN notes): No Functional Status (Recalled from RN notes): na - History of Present Illness Provider Complaint: Patient state that she has been having sore throat, low grade fever, cough and runny nose States that she was worried that she may have COVID and wanted to get tested - Related Data Home Medications Medication Instructions Recorded Confirmed albuterol sulfate 90 mcg/actuation 2 puff INHALATION Q6H PRN 12/07/19 01/22/21 aerosol inhaler Vit Calc,Iron,Folic [Kpn] 1 tab PO DAILY 01/22/21 01/22/21 Previous Rx's Medication Instructions Recorded ondansetron 4 mg disintegrating 4 mg PO Q4H PRN #30 tab 10/28/20 tablet promethazine 12.5 mg tablet 12.5 mg PO Q4-6H PRN #60 tab 12/23/20 cephALEXin [cephALEXin 250mg 250 mg PO Q6H #28 cap 01/22/21 capsule] Allergies Allergy/AdvReac Type Severity Reaction Status Date / Time sulfamethoxazole Allergy Intermediate i-hives Verified 01/27/21 09:36 [From Bactrim] trimethoprim [From Bactrim] Allergy Intermediate i-hives Verified 01/27/21 09:36 amoxicillin Allergy Mild Verified 01/27/21 09:36 - Worker's Comp Is this a Worker's Comp case?: No [facility] History - Hepatitis A Screen Drug use history?: No High risk sexual behaviors?: No History of sexually transmitted infection?: No 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
[2021-02-16 10:50] LABS: UTC Strep Screen (Rapid) Negative (Negative)
[2021-02-16 10:53] VITALS: BP 125/82; PULSE 115; RESP 20; TEMP 36.7; O2SAT 100
--- NOTE | 2021-02-16 21:00 | PC.NURSE ---
PT NOTIFIED OF POSITIVE COVID TEST RESULTS
== END 2021-02-16 10:55 | disposition home or self-care (01) ==
PROVIDERS: Emergency Provider Nurse Practitioner
DX: U07.1 COVID-19 (principal); B34.9 Viral infection, unspecified; J45.909 Unspecified asthma, uncomplicated
CPT/HCPCS: 87880; 99202; G0463; U0003

== ENCOUNTER → 2021-03-18 10:19 | Outpatient (CLI) | payer MEDICAID, SELFPAY ==
[2021-03-18 10:41] LABS: Basophils % 0.2 % (0.1-2.0); Eosinophils # 0.2 K/mm3 (0.0-0.4); Eosinophils % 2.1 % (0.1-12.0); Hematocrit 36.2 % (37.0-47.0); Mean Corpuscular HGB Conc 33.1 g/dL (31.8-35.4); Mean Corpuscular Hemoglobin 32.2 pg (27.0-31.2); Mean Corpuscular Volume 97.2 fl (81-99); Monocytes # 0.5 K/mm3 (0.1-1.0); Monocytes % 4.4 % (1.7-9.3); Neutrophils # 7.8 K/mm3 (1.8-7.8); Neutrophils % 74.3 % (37.0-80.0); Platelet Count 202 K/mm3 (142-424); Red Blood Count 3.72 M/mm3 (4.20-5.40); Red Cell Distribution Width 13.2 % (11.5-17.5); White Blood Count 10.5 K/mm3 (4.8-10.8)
[2021-03-18 11:06] LABS: Glucose,Fasting 88 mg/dl (74-100)
[2021-03-18 12:46] LABS: Glucose 1 Hour 93 mg/dL (74-100)
== END ==
PROVIDERS: Visit Provider Obstetrics & Gynecology
DX: Z34.90 Encounter for supervision of normal pregnancy, unspecified, unspecified trimester (principal)
CPT/HCPCS: 36415; 82951; 85025

== ENCOUNTER → 2021-03-31 17:37 | Outpatient (CLI) | payer MEDICAID, SELFPAY | PROVIDERS: PCP Obstetrics & Gynecology; Visit Provider Nurse Practitioner | DX: Z20.822 Contact with and (suspected) exposure to COVID-19 (principal) | CPT/HCPCS: C9803; U0003; U0005 ==

== ENCOUNTER 2021-04-14 17:15 | Outpatient (CLI) | payer MEDICAID, SELFPAY ==
[2021-04-14 17:26] VITALS: BMI 25.4
[2021-04-14 17:33] LABS: Microscopic, Urine URINE MICROSCOPIC (MICROSCOPIC)
[2021-04-14 17:37] LABS: Appearance,Urine CLEAR (Clear); Bilirubin,Urine Negative (Negative); Blood, Urine Negative (Negative); Color,Urine AMBER (Yellow); Glucose,Urine (UA) Negative (Negative); Ketones,Urine 1+ (Negative); Leukocyte Esterase,Urine Negative (Negative); Nitrate,Urine Negative (Negative); Protein,Urine TRACE (Negative); Specific Gravity, Urine >= 1.030 (1.005-1.030); Urobilinogen,Urine 0.2 EU/dl (0.2)
[2021-04-14 17:44] VITALS: BP 123/77; PULSE 110; RESP 18; TEMP 36.9; O2SAT 96; BMI 25.4
[2021-04-14 17:49] LABS: Amphetamine/Metha Screen,Urine Negative ng/ml (<1000)
[2021-04-14 17:50] LABS: Barbiturates Screen,Urine Negative ng/ml (<200)
[2021-04-14 17:51] LABS: Bacteria,Urine Trace /lpf; Benzodiazepines Screen,Urine Negative ng/ml (<200); Cannabinoid Screen,Urine Positive ng/ml (<50)
[2021-04-14 17:52] LABS: Cocaine Screen,Urine Negative ng/ml (<300)
[2021-04-14 17:53] LABS: Methadone Screen,Urine Negative ng/ml (<300); Opiate Screen,Urine Negative ng/ml (<300)
[2021-04-14 17:54] LABS: Phencyclidine Screen,Urine Negative ng/ml (<25)
== END 2021-04-14 18:52 | disposition home or self-care (01) ==
LOC: OBOUT 17:17 → OB 17:19
PROVIDERS: Visit Provider Obstetrics & Gynecology
DX: O47.03 False labor before 37 completed weeks of gestation, third trimester (principal); Z3A.31 31 weeks gestation of pregnancy
CPT/HCPCS: 59025; 80305; 81001; 96365; G0463

== ENCOUNTER → 2021-05-01 13:00 | Outpatient (CLI) | payer MEDICAID, SELFPAY ==
--- NOTE | 2021-05-01 13:00 | US_ITS ---
PROCEDURE INFORMATION: Exam: US ; Follow up Exam date and time: 05/01/2021 1:00 PM Age: 25 years old Clinical indication: Lmp or gestational age (in weeks): 33w5d; ANGELA June 14 Antepartum complications; Other: Sga; TECHNIQUE: Imaging protocol: Transabdominal ultrasound of the uterus, real time with image documentation. Follow-up (eg, re-evaluation of size by measuring standard growth parameters and amniotic fluid volume, re-evaluation of organ system(s) suspected or confirmed to be abnormal on a previous scan). COMPARISON: US OB >= 14 WEEKS FETUS 01/20/2021 10:25 AM FINDINGS: Gestation: Single intrauterine presentation: Vertex presentation heart rate: Heart rate 155 bpm Placenta: Posterior fundal grade 2 placenta Amniotic fluid: Amniotic fluid 11.8 cm BIOMETRY: Gestational age (AUA): Gestational age by ultrasound 33 weeks 2 days.. Estimated due date (AUA): ANGELA June 17. Estimated weight: Estimated weight 2266 g 43 percentile. Biparietal diameter: BPD 32 weeks 2 days 10% Head circumference: Head circumference 32 weeks 1 day less than 2% Abdominal circumference: Abdominal circumference 34 weeks 0 days 62% Femur length: Femur length 34 weeks 4 days 60% MATERNAL: Cervix: Cervix 2.8-2.96 cm IMPRESSION: 1. Gestational age by ultrasound 33 weeks 2 days.. 2. ANGELA June 17. 3. Estimated weight 2266 g 43 percentile. 4 Cervix 2.8-2.96 cm
== END ==
PROVIDERS: PCP Obstetrics & Gynecology; Visit Provider Obstetrics & Gynecology
DX: O36.5990 Maternal care for other known or suspected poor fetal growth, unspecified trimester, not applicable or unspecified (principal)
CPT/HCPCS: 76816

== ENCOUNTER → 2021-05-11 12:24 | Outpatient (CLI) | payer MEDICAID, SELFPAY ==
[2021-05-11 13:44] LABS: Coronavirus 19, PCR Not Detected (NotDetected); Influenza A, PCR Not Detected (NotDetected); Influenza B, PCR Not Detected (NotDetected)
== END ==
PROVIDERS: PCP Nurse Practitioner Obstetrics & Gynecology; Visit Provider Nurse Practitioner
DX: Z20.822 Contact with and (suspected) exposure to COVID-19 (principal)
CPT/HCPCS: C9803; U0003; U0005

== ENCOUNTER 2021-05-11 12:49 | Outpatient (CLI) | payer MEDICAID, SELFPAY ==
[2021-05-11 13:20] VITALS: BP 129/75; PULSE 110; RESP 18; TEMP 36.8; O2SAT 97; BMI 56.2
[2021-05-11 14:28] VITALS: BMI 25.4
[2021-05-11 14:33] LABS: Microscopic, Urine URINE MICROSCOPIC (MICROSCOPIC)
[2021-05-11 14:49] LABS: Appearance,Urine CLOUDY (Clear); Bilirubin,Urine Negative (Negative); Blood, Urine Negative (Negative); Color,Urine YELLOW (Yellow); Glucose,Urine (UA) Negative (Negative); Ketones,Urine TRACE (Negative); Leukocyte Esterase,Urine 1+ (Negative); Nitrate,Urine Negative (Negative); Protein,Urine Negative (Negative); Urobilinogen,Urine 0.2 EU/dl (0.2)
[2021-05-11 15:03] LABS: Bacteria,Urine 4+ /lpf; Barbiturates Screen,Urine Negative ng/ml (<200); Squamous Epithelial Cell,Urine 20-50 #/hpf (0-5)
[2021-05-11 15:04] LABS: Amphetamine/Metha Screen,Urine Negative ng/ml (<1000); Benzodiazepines Screen,Urine Negative ng/ml (<200)
[2021-05-11 15:05] LABS: Methadone Screen,Urine Negative ng/ml (<300)
[2021-05-11 15:06] LABS: Cannabinoid Screen,Urine Negative ng/ml (<50); Cocaine Screen,Urine Negative ng/ml (<300)
[2021-05-11 15:07] LABS: Opiate Screen,Urine Negative ng/ml (<300)
[2021-05-11 15:08] LABS: Phencyclidine Screen,Urine Negative ng/ml (<25)
== END 2021-05-11 14:27 | disposition home or self-care (01) ==
LOC: OBOUT 12:52 → OB 13:00
PROVIDERS: PCP Obstetrics & Gynecology; Visit Provider Obstetrics & Gynecology
DX: O47.03 False labor before 37 completed weeks of gestation, third trimester; Z3A.35 35 weeks gestation of pregnancy; M54.50 Low back pain, unspecified; R10.2 Pelvic and perineal pain
CPT/HCPCS: 59025; 80305; 81001; 87086; G0463

== ENCOUNTER → 2021-05-12 15:21 | Outpatient (CLI) | payer MEDICAID, SELFPAY | PROVIDERS: Visit Provider Obstetrics & Gynecology | DX: Z34.90 Encounter for supervision of normal pregnancy, unspecified, unspecified trimester (principal) | CPT/HCPCS: 86403 ==

== ENCOUNTER 2021-06-07 18:22 | Inpatient (IN) | payer MEDICAID, SELFPAY ==
[2021-06-07 15:04] VITALS: BMI 26.8
[2021-06-07 15:07] VITALS: BMI 26.8
[2021-06-07 15:43] LABS: Microscopic, Urine URINE MICROSCOPIC (MICROSCOPIC)
[2021-06-07 15:49] LABS: Fetal Membrane Rupture (Rapid) Positive (Negative)
[2021-06-07 15:50] LABS: Appearance,Urine SL CLOUDY (Clear); Bilirubin,Urine Negative (Negative); Blood, Urine 3+ (Negative); Color,Urine YELLOW (Yellow); Glucose,Urine (UA) Negative (Negative); Ketones,Urine Negative (Negative); Leukocyte Esterase,Urine Negative (Negative); Nitrate,Urine Negative (Negative); PH,Urine 7.5 (5.0-8.5); Protein,Urine 1+ (Negative); Specific Gravity, Urine 1.025 (1.005-1.030); Urobilinogen,Urine 0.2 EU/dl (0.2)
[2021-06-07 16:01] LABS: Amphetamine/Metha Screen,Urine Negative ng/ml (<1000); Barbiturates Screen,Urine Negative ng/ml (<200)
[2021-06-07 16:02] LABS: Benzodiazepines Screen,Urine Negative ng/ml (<200); Cannabinoid Screen,Urine Negative ng/ml (<50)
[2021-06-07 16:03] LABS: Cocaine Screen,Urine Negative ng/ml (<300)
[2021-06-07 16:04] LABS: Methadone Screen,Urine Negative ng/ml (<300); Opiate Screen,Urine Negative ng/ml (<300)
[2021-06-07 16:05] LABS: Phencyclidine Screen,Urine Negative ng/ml (<25)
[2021-06-07 16:06] LABS: WBC,Urine 20-50 #/hpf (0-3)
[2021-06-07 16:07] LABS: Bacteria,Urine 3+ /lpf; RBC,Urine 20-50 #/hpf (0-3); Squamous Epithelial Cell,Urine 20-50 #/hpf (0-5)
[2021-06-07 16:58] LABS: Coronavirus 19, PCR Not Detected (NotDetected); Influenza A, PCR Not Detected (NotDetected); Influenza B, PCR Not Detected (NotDetected)
[2021-06-07 17:05] LABS: Basophils # 0.1 K/mm3 (0-0.2); Basophils % 0.4 % (0.1-2.0); Eosinophils # 0.2 K/mm3 (0.0-0.4); Eosinophils % 1.7 % (0.1-12.0); Hematocrit 33.4 % (37.0-47.0); Hemoglobin 11.2 g/dL (12.2-16.2); Lymphocytes # 2.9 K/mm3 (0.7-4.5); Mean Corpuscular HGB Conc 33.4 g/dL (31.8-35.4); Mean Corpuscular Hemoglobin 29.6 pg (27.0-31.2); Mean Corpuscular Volume 88.7 fl (81-99); Mean Platelet Volume 10.9 fl (7.4-10.4); Monocytes # 0.5 K/mm3 (0.1-1.0); Monocytes % 4.2 % (1.7-9.3); Neutrophils # 8.9 K/mm3 (1.8-7.8); Neutrophils % 70.6 % (37.0-80.0); Platelet Count 269 K/mm3 (142-424); Red Blood Count 3.76 M/mm3 (4.20-5.40); Red Cell Distribution Width 13.4 % (11.5-17.5); White Blood Count 12.6 K/mm3 (4.8-10.8)
--- NOTE | 2021-06-07 17:09 | HMH.ACPN2 ---
Internal Medicine - PN: Subj *Date: 06/07/21 *Time: 17:09 Interval history: She is a healthy [id number] is a healthy 25-year-old one para zero at 39 weeks gestational age. She ruptured membranes at home. This has been confirmed with AmniSure. We will admit her for labor and delivery. She is group B streptococcus negative. Exam Vital signs and Labs for Last 24 Hours: Laboratory Results - last 24 hr 06/07/21 15:15: Urine Color Yellow, Urine Appearance Sl cloudy, Urine pH 7.5, Ur Specific [place] 1.025, Urine Protein 1+, Urine Glucose (UA) Negative, Urine Ketones Negative, Urine Blood 3+, Urine Nitrate Negative, Urine Bilirubin Negative, Urine Urobilinogen 0.2, Ur Leukocyte Esterase Negative, Urine RBC 20-50, Urine WBC 20-50, Ur Squamous Epith Cells 20-50, Urine Bacteria 3+ 06/07/21 15:15: Membrane Rupture Positive A 06/07/21 15:15: Urine Opiates Screen Negative, Urine Methadone Screen Negative, Ur Barbituates Screen Negative, Ur Phencyclidine Scrn Negative, Ur Amphetamines Screen Negative, U Benzodiazepines Scrn Negative, Urine Cocaine Screen Negative, U Marijuana (THC) Screen Negative 06/07/21 16:50: WBC 12.6 H, RBC 3.76 L, Hgb 11.2 L, Hct 33.4 L, MCV 88.7, MCH 29.6, MCHC 33.4, RDW 13.4, Plt Count 269, MPV 10.9 H, Neut % (Auto) 70.6, Lymph % (Auto) 23.0, [place] % (Auto) 4.2, Eos % (Auto) 1.7, Baso % (Auto) 0.4, Neut # (Auto) 8.9 H, Lymph # (Auto) 2.9, [place] # (Auto) 0.5, Eos # (Auto) 0.2, Baso # (Auto) 0.1 I & O for Last 24 hours: Intake & Output 06/05/21 06/06/21 06/07/21 06/08/21 11:59 11:59 11:59 11:59 Weight 166 lb - Constitutional no acute distress - *Routine HEENT Exam Head: Present: normocephalic Eye: Present: EOMI, PERRL ENT: Present: mucous membranes moist Assessment and Plan (1) Delayed delivery after spontaneous rupture of membranes Status: Acute Category: Medical Code(s): O42.90 - Premature rupture of membranes, unspecified as to length of time between rupture and onset of labor, unspecified weeks of gestation - Assessment and plan all Dx Assessment and Plan for all problems:: She has spontaneous rupture of membranes that has been confirmed with AmniSure. Her cervix is still just a fingertip. We will see if she gets into active labor overnight. If she has not got into active labor over the next 12 hours we will go ahead and start oxytocin in the morning. We will expect a vaginal delivery. Nonstress test is reactive at this point time and she is just having occasional contractions.
[2021-06-07 19:58] VITALS: BP 140/81; PULSE 83; RESP 18; TEMP 37.1; O2SAT 100
--- NOTE | 2021-06-07 22:21 | P.PN_ITS ---
[facility] Anesthesia Checklist - Patient Identification Patient Identification: Arm Band - Structural Data Admitted From: Inpatient Planned Operative Procedure/s: labor epidural Consent for Planned Operative Procedure(s) Verified: Yes Verified Documents: Surgical Consent, History and Physical - NPO Status Verified Time NPO: 00:00 - Additional verifications Anesthesia Reactions: No - Airway Assessment C-Spine Mobility Assessed: Yes TMJ Mobility Assessed: Yes - Neurological Assessment Level of Consciousness: Awake, Alert - Anesthesia Plan Anesthesia Risk discussed: Yes Anesthesia Plan: Verified ASA Class: II Anesthesia Type: Epidural [facility] History I have reviewed the patient's past medical history: Yes Medical History: Reports:: Asthma Denies:: Anxiety, Depression, Diabetes Mellitus Type 1, Diabetes Mellitus Type 2, Home Oxygen, Hyperlipidemia, Hypertension, Migraine, MRSA, Seizures *Have you ever received a pneumonia vaccine?: No *Have you received a flu vaccine this season?: No Anesthesia experience/problems:: nac Laterality Cases: Bilateral: Tonsillectomy Other Surgeries: Yes: Appendectomy. No: Amputation: No Fractures: No - *Social History Smoking Status: Never smoker Tobacco Type: cigarettes # Packs/Day (cigarettes): 1 Alcohol Intake: never Alcohol Intake Frequency:: a few times a week Substance Use Type: marijuana *Occupational Status:: unemployed Housing: other Household Members: other *Travel in the last 8 weeks: None - Psychiatric History Pschychiatric History:: Denies:: Anxiety, Depression Family Hx:: Cancer Para: 0
[2021-06-08 03:52] VITALS: BP 116/73; PULSE 88; RESP 18; TEMP 36.9; O2SAT 97
--- NOTE | 2021-06-08 07:32 | HMH.PHAINT ---
MEDICATION RECONCILIATION COMPLETED ON PATIENT USING EXTERNAL FILL HISTORY FROM PHARMACY. -AFSHIN KELLER, LEANNED
--- NOTE | 2021-06-08 12:41 | HMH.HP ---
*Admission Date: 06/08/21 *Chief complaint: spontaneous rupture of membranes *History of present illness: 25 yo G1@ 39 1 presented on 06/07/21 with complaint of SROM at 14:00 Minimal cervical change occurred after admission and pitocin augmentation was begun Prophylactic antibiotics were started in the context of prolonged rupture of membranes IUPC and FSE placed without difficulty or complication status reassuring [facility] History I have reviewed the patient's past medical history: Yes Medical History: Reports:: Asthma Denies:: Anxiety, Depression, Diabetes Mellitus Type 1, Diabetes Mellitus Type 2, Home Oxygen, Hyperlipidemia, Hypertension, Migraine, MRSA, Seizures *Have you ever received a pneumonia vaccine?: No *Have you received a flu vaccine this season?: No Anesthesia experience/problems:: nac Laterality Cases: Bilateral: Tonsillectomy Other Surgeries: Yes: Appendectomy. No: Amputation: No Fractures: No - *Social History Smoking Status: Never smoker Tobacco Type: cigarettes # Packs/Day (cigarettes): 1 Alcohol Intake: never Alcohol Intake Frequency:: a few times a week Substance Use Type: marijuana *Occupational Status:: unemployed Housing: other Household Members: other *Travel in the last 8 weeks: None - Psychiatric History Pschychiatric History:: Denies:: Anxiety, Depression Family Hx:: Cancer Para: 0 Review of Systems - Review of Systems Review of systems:: pertinent systems reviewed and negative unless documented below - *Genitourinary Reports other (rupture of membranes) Meds Home Medications Medication Instructions Recorded Confirmed Type albuterol sulfate 90 mcg/actuation 2 puff IH Q6HP PRN 12/07/19 06/08/21 History aerosol inhaler promethazine 12.5 mg tablet 12.5 mg PO Q4-6H PRN #60 tab 12/23/20 06/07/21 Rx Vit Calc,Iron,Folic [Kpn] 1 tab PO DAILY 01/22/21 06/07/21 History Ferrous Sulfate 325 mg PO DAILY 06/07/21 06/07/21 History Allergies Allergy/AdvReac Type Severity Reaction Status Date / Time sulfamethoxazole Allergy Intermediate i-hives Verified 05/29/21 15:57 [From Bactrim] trimethoprim [From Bactrim] Allergy Intermediate i-hives Verified 05/29/21 15:57 amoxicillin Allergy Mild Verified 05/29/21 15:57 Exam Vital signs and Labs for Last 24 Hours: Temp Pulse Resp BP Pulse Ox 98.4 F 88 18 116/73 97 06/08/21 03:52 06/08/21 03:52 06/08/21 03:52 06/08/21 03:52 06/08/21 03:52 Laboratory Results - last 24 hr 06/07/21 15:15: Urine Color Yellow, Urine Appearance Sl cloudy, Urine pH 7.5, Ur Specific [place] 1.025, Urine Protein 1+, Urine Glucose (UA) Negative, Urine Ketones Negative, Urine Blood 3+, Urine Nitrate Negative, Urine Bilirubin Negative, Urine Urobilinogen 0.2, Ur Leukocyte Esterase Negative, Urine RBC 20-50, Urine WBC 20-50, Ur Squamous Epith Cells 20-50, Urine Bacteria 3+ 06/07/21 15:15: Membrane Rupture Positive A 06/07/21 15:15: Urine Opiates Screen Negative, Urine Methadone Screen Negative, Ur Barbituates Screen Negative, Ur Phencyclidine Scrn Negative, Ur Amphetamines Screen Negative, U Benzodiazepines Scrn Negative, Urine Cocaine Screen Negative, U Marijuana (THC) Screen Negative 06/07/21 16:50: WBC 12.6 H, RBC 3.76 L, Hgb 11.2 L, Hct 33.4 L, MCV 88.7, MCH 29.6, MCHC 33.4, RDW 13.4, Plt Count 269, MPV 10.9 H, Neut % (Auto) 70.6, Lymph % (Auto) 23.0, [place] % (Auto) 4.2, Eos % (Auto) 1.7, Baso % (Auto) 0.4, Neut # (Auto) 8.9 H, Lymph # (Auto) 2.9, [place] # (Auto) 0.5, Eos # (Auto) 0.2, Baso # (Auto) 0.1 06/07/21 16:50: SARS-CoV-2 (PCR) Not detected, Influenza A Untype (PCR) Not detected, Influenza Type B (PCR) Not detected 06/07/21 16:50: Blood Type A Positive, Antibody Screen Negative I & O for Last 24 hours: Intake & Output 06/06/21 06/07/21 06/08/21 06/09/21 11:59 11:59 11:59 11:59 Output Total 600 / 600 Balance -600 / -600 Weight 166 lb - Constitutional no acute distress - *Routine HEENT Ex
--- NOTE | 2021-06-08 14:15 | HMH.LABNOT ---
Labor Note - Subjective: Date: 06/08/21 Time: 14:15 regular contraction Comment:: cervix 8/100/0 comfortable with epidural tracing reassuring - Assessment: Patient Problems: All Active Problems Spontaneous rupture of amniotic membranes (Acute) 39 weeks gestation of (Acute) Dizziness (Acute) Pelvic cramping (Acute) Encounter for laboratory testing for COVID-19 virus (Acute) Viral syndrome (Acute) Delayed delivery after spontaneous rupture of membranes (Acute) uterine contractions (Acute) COVID-19 affecting , antepartum (Acute) ASCUS of cervix with negative high risk HPV (Acute) Tobacco smoking complicating (Acute) Chlamydial cervicitis (Acute) Positive urine drug screen (Acute) (Acute) Asthma with acute exacerbation (Acute) Vaginal bleeding (Acute) Reactive airway disease (Acute) Alcohol intoxication (Acute) Vaginal spotting (Acute) Cramping affecting , antepartum (Acute) Tobacco abuse counseling (Acute) Screening for STDs (sexually transmitted diseases) (Acute) - Plan: Comment:: continue pitocin augmentation continuous monitoring anticipate
--- NOTE | 2021-06-08 17:20 | HMH.DN ---
- Delivery Note Delivery Date:: 06/08/21 Delivery Time:: 15:35 Anesthesia Type: Epidural Was labor medically induced?: No Gestational age (weeks): 39 Infant delivered prior to 39 weeks?: No at 1 minute: 5 at 5 minutes: 7 (apgars 5 (1 min), 7 (5 min), 9 (10 min)) Delivery Procedure:: Spontaneous vaginal delivery of liveborn female infant over intact perineum. Delivery uncomplicated No nuchal cord; no shoulder dystocia with delivery Infant taken to warmer immediately after delivery, with standard nursing assessment performed Apgars: 5 (1 min), 7 (5 min), 9 (10 min) Placenta spontaneously expressed and examined; noted to be complete/intact. Vulva, vagina, and cervix inspected; 2nd degree laceration repaired with vicryl in layers EBL: 300 cc All sponge/needle/instrument counts correct at conclusion of procedure Laceration:: vaginal
[2021-06-08 20:08] VITALS: BP 125/70; PULSE 77; RESP 18; TEMP 36.9; O2SAT 99
[2021-06-09 04:29] VITALS: BP 132/59; PULSE 71; RESP 18; TEMP 37.1; O2SAT 98
--- NOTE | 2021-06-09 10:26 | SW/DCPLANNER ---
RECEIVED REFERRAL ON THIS PATIENT STATED PATIENT HAD A FEW VISITS THAT WERE POSITIVE FOR THC... PATIENT CAME IN AND DELIVERED A LIVE BORN FEMALE VAGINALLY DELIVERY. HER URINE SCREEN WAS NEGATIVE UPON ADMISSION. PATIENT HAS CHOSEN DR AYALA THE INFANTS DOCTOR ADN HER NAME IS GALA WARD.. 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 PATIENT STATED SHE HAS EVERYTHING SHE NEEDS TO TAKE HER HOME AND IS ..BABY'S FATHER IS AT BEDSIDE AND BOTH PARENTS ARE ATTENTIVE.. WAITING ON THE INFANTS UDS TO SEE IF SHE HAS ANY DRUGS IN HER SYSTEM AND THE CORD SCREEN WAS COLLECTED AND SENT OFF.. IF EITHER IS POSITIVE IT WILL BE CALLED IN FOR INVESTIGATION... DISCHARGE PLAN IS FOR [facility] ([facility]O)
--- NOTE | 2021-06-09 10:49 | HMH.PHAINT ---
MEDICATION RECONCILIATION COMPLETED ON PATIENT USING EXTERNAL FILL HISTORY FROM PHARMACY. -AFSHIN KELLER, LEANNED
--- NOTE | 2021-06-09 12:40 | HMH.ACPN2 ---
Internal Medicine - PN: Subj *Date: 06/09/21 *Time: 12:40 Interval history: PPD #1 No unusual complaints Tolerating regular diet Ambulating and voiding without difficulty Pain control sufficient Lochia appropriate Exam Vital signs and Labs for Last 24 Hours: Temp Pulse Resp BP Pulse Ox 98.7 F 71 18 132/59 L 98 06/09/21 04:29 06/09/21 04:29 06/09/21 04:29 06/09/21 04:29 06/09/21 04:29 I & O for Last 24 hours: Intake & Output 06/07/21 06/08/21 06/09/21 06/10/21 11:59 11:59 11:59 11:59 Output Total 600 / 600 Balance -600 / -600 Weight 166 lb Microbiology Reports for the Last 24 Hours: Microbiology 06/07/21 15:15 Urine,Clean Catch Urine Culture - Preliminary NO GROWTH AFTER 24 HOURS Narrative: CONSTITUTIONAL: no acute distress HEENT: mucous membranes moist PULMONARY: breathing unlabored without audible wheezes CV: no tachycardia or visible JVD; normal LE peripheral pulses ABD: soft, NT/ND, no guarding : fundus firm below umbilicus SKIN: no visible rash or lesions EXT: 1+ edema LEs NEURO: alert/oriented, no altered mental status PSYCH: appropriate mood and demeanor Assessment and Plan (1) 39 weeks gestation of Status: Acute Category: Medical Code(s): Z3A.39 - 39 weeks gestation of (2) Spontaneous rupture of amniotic membranes Status: Acute Category: Medical (3) Tobacco smoking complicating Status: Acute Category: Medical Code(s): O99.330 - Smoking (tobacco) complicating , unspecified trimester (4) Vaginal delivery Status: Acute Category: Medical Code(s): O80 - Encounter for full-term uncomplicated delivery - Assessment and plan all Dx Assessment and Plan for all problems:: routine care anticipate discharge home tomorrow
[2021-06-09 15:56] LABS: Hematocrit 31.3 % (37.0-47.0); Hemoglobin 10.1 g/dL (12.2-16.2)
[2021-06-09 19:42] VITALS: BP 132/60; PULSE 71; RESP 18; TEMP 36.9; O2SAT 98
--- NOTE | 2021-06-10 10:30 | P.PN_ITS ---
Internal Medicine - PN: Subj *Date: 06/10/21 *Time: 10:30 (This is day #1. Patient is afebrile. Vital signs s table. Abdomen soft. Lochia normal. Uterine fundus involuting well. Hemoglobin 10.1 g. Breast-feeding well. Plan is for discharge today.) Exam Vital signs and Labs for Last 24 Hours: Temp Pulse Resp BP Pulse Ox 98.4 F 71 18 132/60 98 06/09/21 19:42 06/09/21 19:42 06/09/21 19:42 06/09/21 19:42 06/09/21 19:42 Laboratory Results - last 24 hr 06/09/21 15:37: Hgb 10.1 L, Hct 31.3 L I & O for Last 24 hours: Intake & Output 06/07/21 06/08/21 06/09/21 06/10/21 11:59 11:59 11:59 11:59 Output Total 600 / 600 Balance -600 / -600 Weight 166 lb Microbiology Reports for the Last 24 Hours: Microbiology 06/07/21 15:15 Urine,Clean Catch Urine Culture - Final NO GROWTH AFTER 48 HOURS Assessment and Plan (1) 39 weeks gestation of Status: Acute Category: Medical Code(s): Z3A.39 - 39 weeks gestation of (2) Spontaneous rupture of amniotic membranes Status: Acute Category: Medical (3) Tobacco smoking complicating Status: Acute Category: Medical Code(s): O99.330 - Smoking (tobacco) complicating , unspecified trimester (4) Vaginal delivery Status: Acute Category: Medical Code(s): O80 - Encounter for full-term uncomplicated delivery
--- NOTE | 2021-06-10 10:32 | PC.NURSE ---
Dr. Cash (covering Call this weekend) here to see pt.
--- NOTE | 2021-06-10 10:34 | HMH.DCSUM ---
General - General Admission date:: 06/07/21 Discharge date: 06/10/21 (This 25-year-old 3, now para 1, Ab2 white female who presented at 39 weeks of gestation with rupture of membranes. She was augmented with intravenous Pitocin, and delivered spontaneously at 1535 on 06/08/2021. Baby was an 5/7/9, 8 pound 2 ounce, 19 inch female infant, who is breast-feeding and is done well. , the patient has done well. She is eating and ambulating and passing flatus. Her lochia is normal. Her uterine fundus has involuted well. Her hemoglobin is 10.1 g. She is discharged home on the first day on iron and vitamins, and on Tylenol and Motrin as needed for pain. She is given appropriate instructions as to diet and exercise, and perineal care, and she is to return to Dr. Sky's office for follow-up as scheduled. Her blood type is A+. Her rubella titer is immune.) HPI HPI: 25 yo G1@ 39 1/ presented on 06/07/21 with complaint of SROM at 14:00 Minimal cervical change occurred after admission and pitocin augmentation was begun Prophylactic antibiotics were started in the context of prolonged rupture of membranes IUPC and FSE placed without difficulty or complication status reassuring Hospital Course Rhogam Administration: Not Indicated Objective Vital signs: Temp Pulse Resp BP Pulse Ox 98.4 F 71 18 132/60 98 06/09/21 19:42 06/09/21 19:42 06/09/21 19:42 06/09/21 19:42 06/09/21 19:42 Results Labs on day of discharge: Labs from last 24 hours 06/09/21 15:37 Hgb 10.1 L Hct 31.3 L DS: Diagnosis - Discharge Diagnosis (1) 39 weeks gestation of Status: Acute (2) Spontaneous rupture of amniotic membranes Status: Acute (3) Tobacco smoking complicating Status: Acute (4) Vaginal delivery Status: Acute Discharge Plan - Patient Discharge Instructions ACTIVITY: Ambulate as tolerated DIET: advance to your usual diet Patient Instructions: Depression, Hemorrhage, DI for Labor and Delivery, Vaginal , DI for Pre-eclampsia, [facility] Post Discharge Instructions, Preventing the Spread of Coronavirus Discharge Instructions - Follow up Plan Follow up with: Ayanna Sky MD [Staff Physician] - 07/21/21 9:45 am Disposition: Home, Self-Care Condition at discharge:: Stable Home Medications: Home Medications Medication Instructions Recorded Confirmed Type albuterol sulfate 90 mcg/actuation 2 puff IH Q6HP PRN 12/07/19 06/08/21 History aerosol inhaler promethazine 12.5 mg tablet 12.5 mg PO Q4-6H PRN #60 tab 12/23/20 06/07/21 Rx Vit Calc,Iron,Folic [Kpn] 1 tab PO DAILY 01/22/21 06/07/21 History Ferrous Sulfate 325 mg PO DAILY 06/07/21 06/07/21 History Prescriptions/Medication Reconciliation: Continued albuterol sulfate 90 mcg/actuation aerosol inhaler 2 puff IH Q6HP PRN PRN Reason: asthma Vit Calc,Iron,Folic [Kpn] 1 tab PO DAILY Ferrous Sulfate 325 mg PO DAILY Discontinued promethazine 12.5 mg tablet 12.5 mg PO Q4-6H PRN #60 tab PRN Reason: nausea and vomiting - Problem Reconciliation Problems Reviewed?: Yes
== END 2021-06-10 12:30 | disposition home or self-care (01) | DRG 807 ==
LOC: OBOUT 18:25 → OB 18:25
PROVIDERS: Obstetrics & Gynecology; Admitting Provider Nurse Practitioner Obstetrics & Gynecology; PCP Nurse Practitioner Obstetrics & Gynecology; Visit Provider Nurse Practitioner Obstetrics & Gynecology
DX: O42.02 Full-term premature rupture of membranes, onset of labor within 24 hours of rupture (principal); Z37.0 Single live birth; O99.330 Smoking (tobacco) complicating pregnancy, unspecified trimester; Z3A.39 39 weeks gestation of pregnancy; F17.290 Nicotine dependence, other tobacco product, uncomplicated; O70.1 Second degree perineal laceration during delivery
CPT/HCPCS: 59409; 36415; 59025; 80305; 81001; 84112; 85014; 85018; 85025; 86850; 87086; 94761; C1758; C9803; G0283; J0595; U0003; U0005

== ENCOUNTER 2022-05-05 23:53 | Emergency (ER) | payer MEDICAID, SELFPAY ==
[2022-05-05 23:53] VITALS: BP 130/89; PULSE 123; RESP 16; TEMP 36.8; O2SAT 98; BMI 21.7
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
[2022-05-06 01:08] VITALS: BP 129/79; PULSE 110; RESP 16; TEMP 36.8; O2SAT 98
== END 2022-05-06 01:09 ==
PROVIDERS: Emergency Provider Emergency Medicine
DX: R51.9 Headache, unspecified (principal); J45.909 Unspecified asthma, uncomplicated; Z79.51 Long term (current) use of inhaled steroids; Z79.899 Other long term (current) drug therapy; Z88.0 Allergy status to penicillin; Z88.1 Allergy status to other antibiotic agents; Z88.2 Allergy status to sulfonamides; Z88.3 Allergy status to other anti-infective agents; Z87.891 Personal history of nicotine dependence
CPT/HCPCS: 99283

== ENCOUNTER 2023-05-27 14:25 | Emergency (ER) | payer MEDICAID, SELFPAY ==
[2023-05-27 14:40] VITALS: BP 142/95; PULSE 93; RESP 26; TEMP 37.1; O2SAT 98; BMI 25.6
--- NOTE | 2023-05-27 15:07 | EXP.UTC ---
Discharge Plan Disposition Patient Disposition: Home, Self-Care Condition: Good Prescriptions Prescriptions: New methylprednisolone [Medrol (Vitaliy)] 4 mg tablets,dose pack See Rx Instructions .Route .COMPLEX 6 Days Qty: 21 0RF Rx Instructions: taper pack; guaifenesin [Mucinex] 600 mg tablet extended release 12hr 1,200 mg PO BID PRN (Reason: cough) Qty: 20 0RF azithromycin [Zithromax Z-Vitaliy] 250 mg tablet See Rx Instructions .ROUTE .COMPLEX 5 Days Qty: 6 0RF Rx Instructions: For 250 mg dose pack: take 500 mg today (day 1), then 250 mg for 4 days (days 2-5) No Action albuterol sulfate 90 mcg/actuation HFA aerosol inhaler 2 puff inhalation Q6HP PRN (Reason: asthma) ondansetron HCl 4 mg tablet 4 mg PO Q6H PRN (Reason: nausea and vomiting) Qty: 10 0RF Referrals Follow up/Referrals: Abhilash Rich MD [Primary Care Provider] - See instructions Activity Restrictions/Add. Instructions Additional Instructions/Restrictions: *Monitor Temp, Over the counter Motrin or Tylenol as directed/as needed Tylenol every 4 hours and Motrin every 6 hours (as long as your family doctor has told you that you can take it) for fever or pain. and straight to ER if unable to lower temp less than 101.0 after medication given *Warm salt water gargles may help to soothe the throat *Throat Lozenges? *Warm fluids like tea with honey may help to soothe the throat? *Sleep elevated *Humidifier/Vaporizer Take medication as prescribed Follow up IMMEDIATELY for new or worsening symptoms or no Noticeable improvement over the next 48-72 hours. 911 for difficulty breathing or swallowing You were tested for today for Upper Respiratory Panel with COVID19 your test result should be back in the next 24hrs You may check your results on the [facility] If your COVID result is positive you must Quarantine for 5 days Clinical Impressions Clinical Impression: Sinusitis Qualifiers: Sinusitis location: unspecified location Chronicity: unspecified Qualified Code(s): J32.9 - Chronic sinusitis, unspecified Stand Alone Forms Stand Alone Forms: Work/School Release Instructions Patient Instructions: DI for Sinusitis, DI for Respiratory Syncytial Virus -- Adults, Cough Discharge ED Provider: Diane Brown [facility] General Stated complaint: possible RSV Mode of Arrival: Ambulatory Source of Information: Patient Limitations: No Limitations Time Seen by Provider: 05/27/23 15:08 Description of Symptoms (Recalled from Triage Doc. 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 States that she also has a hx of asthma and not sure if she may have RSV or a bad sinus infection States that at times she is coughing up some mucous Related Data Home Medications Medication Instructions Recorded Confirmed albuterol sulfate 90 mcg/actuation 2 puff inhalation Q6HP PRN asthma 12/07/19 11/14/22 aerosol inhaler Previous Rx's Medication Instructions Recorded ondansetron HCl 4 mg tablet 4 mg PO Q6H PRN nausea and 11/14/22 vomiting #10 tabs azithromycin 250 mg tablet See Rx Instructions PO .COMPLEX 5 05/27/23 (Zithromax Z-Vitaliy) days #6 tabs guaifenesin 600 mg tablet, 1,200 mg PO BID PRN cough #20 tabs 05/27/23 extended release 12 hr (Mucinex) methylprednisolone 4 mg tablets in See Rx Instructions .Route 05/27/23 a dose pack (Medrol (Vitaliy)) .COMPLEX 6 days #21
[2023-05-27 15:31] VITALS: BP 142/95; PULSE 93; RESP 26; TEMP 37.1; O2SAT 98
[2023-05-27 15:39] LABS: Adenovirus,PCR Not Detected (NotDetected); Coronavirus 19, PCR Not Detected (NotDetected); Coronavirus 229E Not Detected (NotDetected); Coronavirus NL63 Not Detected (NotDetected); Coronavirus OC43 Not Detected (NotDetected); Coronovirus HKU1,PCR Not Detected (NotDetected); Human Metapneumovirus Not Detected (NotDetected); Influenza A, PCR Not Detected (NotDetected); Influenza AH1, 2009 Not Detected (NotDetected); Influenza AH1, PCR Not Detected (NotDetected); Influenza AH3,PCR Not Detected (NotDetected); Influenza B, PCR Not Detected (NotDetected); Parainfluenza 1, PCR Not Detected (NotDetected); Parainfluenza 2, PCR Not Detected (NotDetected); Parainfluenza 3, PCR Not Detected (NotDetected); Parainfluenza 4, PCR Not Detected (NotDetected)
[2023-05-27 20:25] LABS: Respiratory Syncytial Virus Detected (NotDetected); Rhinovirus/Enterovirus Detected (NotDetected)
== END 2023-05-27 15:32 | disposition home or self-care (01) ==
PROVIDERS: Emergency Provider Nurse Practitioner; PCP Family Medicine
DX: J01.90 Acute sinusitis, unspecified (principal); B97.4 Respiratory syncytial virus as the cause of diseases classified elsewhere; R05.9 Cough, unspecified; R07.0 Pain in throat; R09.81 Nasal congestion; J45.909 Unspecified asthma, uncomplicated; F17.290 Nicotine dependence, other tobacco product, uncomplicated
CPT/HCPCS: 87632; 87635; 99212; 99214; G0463

== ENCOUNTER 2023-07-09 11:47 | Emergency (ER) | payer MEDICAID, SELFPAY ==
[2023-07-09 12:00] VITALS: BP 157/89; PULSE 99; RESP 22; TEMP 37.3; O2SAT 98; BMI 24.2
--- NOTE | 2023-07-09 12:08 | ED_ITS ---
Discharge Plan Disposition Patient Disposition: Home, Self-Care Condition: Good Prescriptions Prescriptions: New ipdmktrzxyhaqls-fbjpjamaj-AT [Bromfed DM] 2-30-10 mg/5 mL Syrup 10 ml PO Q4H PRN (Reason: Cough) Qty: 240 0RF Referrals Follow up/Referrals: Provider,Referral, [Primary Care Provider] - See instructions Activity Restrictions/Add. Instructions Additional Instructions/Restrictions: *Monitor Temp, Over the counter Motrin or Tylenol as directed/as needed Tylenol every 4 hours and Motrin every 6 hours (as long as your family doctor has told you that you can take it) for fever or pain. and straight to ER if unable to lower temp less than 101.0 after medication given *Warm salt water gargles may help to soothe the throat *Throat Lozenges? *Warm fluids like tea with honey may help to soothe the throat? *Sleep elevated *Humidifier/Vaporizer *Bromfed may cause drowsiness. Know how it effects you (your child) before driving, caring for small child, or sending your child to school. Not other antihistamines/allergy medications while taking bromfed Follow up IMMEDIATELY for new or worsening symptoms or no Noticeable improvement over the next 48-72 hours. 911 for difficulty breathing or swallowing You were tested for today for ?Flu/COVID19 your test result should be back in the next couple hours, you may check your results on the [facility] Portal if your COVID or Flu is positive you must Quarantine for 5 days Clinical Impressions Clinical Impression: Viral syndrome Stand Alone Forms Stand Alone Forms: Work/School Release Instructions Patient Instructions: DI for Viral Syndrome Discharge ED Provider: [place] [facility] [place] General Stated complaint: runny nose, chills, body aches Mode of Arrival: Ambulatory Source of Information: Patient Limitations: No Limitations Time Seen by Provider: 07/09/23 12:08 Description of Symptoms (Recalled from Triage Doc. by RN): PATIENT C/O CHILLS, HOT FLASHES, VOMITING, FEVER, BODY ACHES AND COUGH SINCE SATURDAY HEENT Symptoms (Recalled from RN notes): Yes Resp Symptoms (Recalled from RN notes): Yes Skin Symptoms (Recalled from RN notes): No MS Symptoms (Recalled from RN notes): No Functional Status (Recalled from RN notes): WNL History of Present Illness Provider Complaint: Patient states that she started feeling bad on Saturday States she was around her mother last week that had COVID States she has been having fever, chills, body aches, headache, N/V and cough States that today she wasnt feeling any better so she came in to get checked Related Data Previous Rx's Medication Instructions Recorded wlgwakwidnietbu-kotaiwvxvirpuup-JV 10 ml PO Q4H PRN Cough #240 mL 07/09/23 2 mg-30 mg-10 mg/5 mL oral syrup (Bromfed DM) Allergies Allergy/AdvReac Type Severity Reaction Status Date / Time sulfamethoxazole Allergy Intermediate i-hives Verified 11/14/22 14:47 [From Bactrim] trimethoprim [From Bactrim] Allergy Intermediate i-hives Verified 11/14/22 14:47 amoxicillin Allergy Mild Verified 11/14/22 14:47 Worker's Comp Is this a Worker's Comp case?: No [facility] Disclaimer: The information contained in this section may have been updated after the patient was seen, as this information can be updated by other users. 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 Chlamydial cervicitis Nexplanon insertion LUE 09/14/22 Surgical History H/O eye surgery Family History Grandmother Cancer Brain Social History Smoking Status: Current some day smoker tobacco type: e-cigarettes alcohol intake: current substance use type: marijuana current occupational status: unemployed Travel in the last 8 weeks: None household members: other housing: other ROS Obtained: Yes All systems reviewed & no additional complaints except as documented and Yes Systems reviewed as appropriate & no additional complaints except as documented Constitutional Constitutional: Reports system reviewed and no additional complaints, except as documented, Reports as per HPI, Reports body ache, Reports chills, Reports fever(s) and Reports headache(s) ENT Ears, Nose, Mouth, and Throat: Reports system reviewed and no additional complaints, except as documented, Reports as per HPI and Reports headache(s) Cardiovascular Cardiovascular: Reports system reviewed and no additional complaints, except as documented and Reports as per HPI Respiratory Respiratory: Reports system reviewed and no additional complaints, except as documented and Reports as per HPI Gastrointestinal Gastrointestingal: Reports system reviewed and no additional complaints, except as documented, as per HPI, nausea and vomiting; Denies abdominal pain, cramping or diarrhea Neurologic Neurologic: Reports headache(s) Physical Exam General General appearance: alert and in no apparent distress ENT ENT exam: Present mucous membranes moist Expanded ENT Exam Nose exam: Absent sinus tenderness Throat exam: Present normal inspection Chest Chest inspection: Present normal inspection and symmetric chest wall rise Respiratory Respiratory exam: Present normal lung sounds bilaterally; Absent respiratory distress or wheezes Cardiovascular Cardiovascular exam: Present regular rate, normal rhythm and normal heart sounds Abdominal Exam Abdominal exam: Present soft and normal bowel sounds; Absent distention or tenderness Neurological Exam Neurological exam: Present alert, oriented X3 and normal gait Medical Decision Making Ian Inquiry Pt receiving controlled substance: No Ian was queried for this patient: No Vital Signs: 07/09/23 12:00 Temperature 99.1 F Temperature Source Oral Pulse Rate [Right Brachial] 99 H Respiratory Rate 22 Blood Pressure [Left Arm] 157/89 H Blood Pressure Mean [Left Arm] 111 Blood Pressure Source [Left Arm] Automatic Cuff Blood Pressure Position [Left Arm] Sitting 02 Sat by Pulse Oximetry 98 Oxygen Delivery Method Room Air Lab Data Lab results reviewed: Yes I reviewed the patient's lab results.
[2023-07-09 12:17] LABS: UTC Influenza A Antigen Negative (Negative); UTC Influenza B Antigen Negative (Negative)
[2023-07-09 12:18] LABS: Coronavirus 19, PCR Not Detected (NotDetected); Influenza A, PCR Not Detected (NotDetected); Influenza B, PCR Not Detected (NotDetected)
== END 2023-07-09 12:15 | disposition home or self-care (01) ==
PROVIDERS: Emergency Provider Nurse Practitioner
DX: R11.2 Nausea with vomiting, unspecified (principal); R51.9 Headache, unspecified; R09.81 Nasal congestion; R05.9 Cough, unspecified; M79.18 Myalgia, other site; B34.9 Viral infection, unspecified; F17.290 Nicotine dependence, other tobacco product, uncomplicated; R50.9 Fever, unspecified; Z20.822 Contact with and (suspected) exposure to COVID-19
CPT/HCPCS: 87636; 87804; 99212; 99214; G0463

== ENCOUNTER 2023-08-28 08:18 | Emergency (ER) | payer OTHER, MEDICAID, SELFPAY ==
--- NOTE | 2023-08-28 09:12 | ED_ITS ---
Discharge Plan Disposition Patient Disposition: Home, Self-Care Condition: Good Prescriptions Prescriptions: New ondansetron 4 mg tablet,disintegrating 4 mg PO Q8H PRN (Reason: nausea and vomiting) Qty: 10 0RF No Action gukwjssrohjlekl-xonpysuzc-KD [Bromfed DM] 2-30-10 mg/5 mL Syrup 10 ml PO Q4H PRN (Reason: Cough) Qty: 240 0RF Referrals Follow up/Referrals: Ray Mueller DO [Primary Care Provider] - See instructions Activity Restrictions/Add. Instructions Additional Instructions/Restrictions: *Monitor Temp, Over the counter Motrin or Tylenol as directed/as needed Tylenol every 4 hours and Motrin every 6 hours (as long as your family doctor has told you that you can take it) for fever or pain. and straight to ER if unable to l ower temp less than 101.0 after medication given *Warm salt water gargles may help to soothe the throat *Throat Lozenges? *Warm fluids like tea with honey may help to soothe the throat? *Sleep elevated *Humidifier/Vaporizer Follow up IMMEDIATELY for new or worsening symptoms or no Noticeable improvement over the next 48-72 hours. 911 for difficulty breathing or sw allowing You were tested for today for Rapid Flu/ COVID19 your test result should be back in the next couple hours, you may Check your Results on the [facility] [employer] Portal if your COVID test is positive you must Quarantine for 5 days Clinical Impressions Clinical Impression: Viral upper respiratory infection Stand Alone Forms Stand Alone Forms: Work/School Release Instructions Patient Instructions: DI for Viral Syndrome, DI for Fever (Symptom) -- Adult Discharge ED Provider: Diane [place] [facility] [place] General Stated complaint: no taste or smell, vomiting, fever, chills Time Seen by Provider: 08/28/23 09:12 History of Present Illness Provider Complaint: Patient states that she started feeling bad day before yesterday but it hit her last night States that she started with nasal congestion and drainage, body aches, chills, N/V and not able to taste or smell 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 Related Data Previous Rx's Medication Instructions Recorded vmnxuxjjpwvjfok-fkbqatbdzkfnaxb-QN 10 ml PO Q4H PRN Cough #240 mL 07/09/23 2 mg-30 mg-10 mg/5 mL oral syrup (Bromfed DM) ondansetron 4 mg disintegrating 4 mg PO Q8H PRN nausea and 08/28/23 tablet vomiting #10 tabs Allergies Allergy/AdvReac Type Severity Reaction Status Date / Time sulfamethoxazole Allergy Intermediate i-hives Verified 11/14/22 14:47 [From Bactrim] trimethoprim [From Bactrim] Allergy Intermediate i-hives Verified 11/14/22 14:47 amoxicillin Allergy Mild Verified 11/14/22 14:47 PFSH PFS Disclaimer: The information contained in this section may have been updated after the patient was seen, as this information can be updated by other users. 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 Chlamydial cervicitis Nexplanon insertion LUE 09/14/22 Surgical History H/O eye surgery Family History Grandmother Cancer Brain Social History Smoking Status: Current some day smoker tobacco type: e-cigarettes alcohol intake: current substance use type: marijuana current occupational status: unemployed Travel in the last 8 weeks: None household members: other housing: other ROS Obtained: Yes All systems reviewed & no additional complaints except as documented and Yes Systems reviewed as appropriate & no additional complaints except as documented Constitutional Constitutional: Reports system reviewed and no additional complaints, except as documented, Reports as per HPI, Reports body ache, Reports chills, Reports fatigue and Reports fever(s) ENT Ears, Nose, Mouth, and Throat: Reports system reviewed and no additional complaints, except as documented, Reports as per HPI, Reports nasal congestion and Reports nasal discharge Cardiovascular Cardiovascular: Reports system reviewed and no additional complaints, except as documented and Reports as per HPI Respiratory Respiratory: Reports system reviewed and no additional complaints, except as documented and Reports as per HPI Gastrointestinal Gastrointestingal: Reports system reviewed and no additional complaints, except as documented and as per HPI Endocrine Endocrine: Reports fatigue Physical Exam General General appearance: alert and in no apparent distress ENT ENT exam: Present mucous membranes moist Expanded ENT Exam Nose exam: Absent sinus tenderness Throat exam: Present normal inspection Respiratory Respiratory exam: Present normal lung sounds bilaterally; Absent respiratory distress or wheezes Cardiovascular Cardiovascular exam: Present regular rate, normal rhythm and normal heart sounds Abdominal Exam Abdominal exam: Present soft and normal bowel sounds; Absent distention or tenderness Neurological Exam Neurological exam: Present alert, oriented X3 and normal gait Medical Decision Making Ian Inquiry Pt receiving controlled substance: No Ian was queried for this patient: No
[2023-08-28 09:17] VITALS: BP 135/95; PULSE 101; RESP 16; TEMP 37; O2SAT 100; BMI 25.0
[2023-08-28 09:26] LABS: Coronavirus 19, PCR Not Detected (NotDetected); Influenza A, PCR Not Detected (NotDetected); Influenza B, PCR Not Detected (NotDetected)
[2023-08-28 09:42] VITALS: BP 135/95; PULSE 101; RESP 16; TEMP 37; O2SAT 100
== END 2023-08-28 09:43 | disposition home or self-care (01) ==
PROVIDERS: Emergency Provider Nurse Practitioner; PCP Internal Medicine
DX: R11.2 Nausea with vomiting, unspecified (principal); R50.9 Fever, unspecified; R09.81 Nasal congestion; R43.9 Unspecified disturbances of smell and taste; B34.9 Viral infection, unspecified; F17.290 Nicotine dependence, other tobacco product, uncomplicated; Z20.828 Contact with and (suspected) exposure to other viral communicable diseases
CPT/HCPCS: 87636; 99212; 99214; G0463

== ENCOUNTER 2024-12-18 10:48 | Emergency (ER) | payer MEDICAID, SELFPAY ==
--- NOTE | 2024-12-18 10:52 | PC.NURSE ---
Warm blanket given to patient; call orantes within reach. BOUCHRA Salcido at BS for triage
[2024-12-18 10:55] VITALS: BP 133/105; PULSE 90; RESP 20; TEMP 37; O2SAT 100; BMI 24.2
[2024-12-18] MEDS: METHOCARBAMOL 500MG TABLET 750 MG PO (11:18)
--- NOTE | 2024-12-18 11:18 | HMH.EDGENADL ---
Discharge Plan Disposition Patient Disposition: Home, Self-Care Condition: Good Prescriptions Prescriptions: New dexamethasone 6 mg tablet 6 mg PO DAILY Qty: 5 0RF methocarbamol 750 mg tablet 1,500 mg PO TID 5 Days Qty: 30 0RF No Action Nexplanon 68 mg implant subdermal Referrals Follow up/Referrals: Rebecca Mays APRN [Primary Care Provider, Family Practice] - See instructions Activity Restrictions/Add. Instructions Additional Instructions/Restrictions: Call your family doctor to establish care for this visit to the emergency department and schedule follow-up within 48 hours to ensure improvement. If you have any worsening of your condition or any other concerning signs or symptoms, return to the emergency department or your primary care doctor for further evaluation. Methocarbamol can cause you to feel drowsy. Do not drive, operate heavy machinery, or engage in any activity that may make you tired, fall asleep, and because harm to yourself or others while taking this medication. If you continue having pain, talk to your family doctor about physical therapy and/or potential referral to orthopedics for further evaluation. Clinical Impressions Clinical Impression: Acute pain of left shoulder Print Language Print Language: Romansh Discharge ED Provider: Aditya Wyman General Adult HPI General Chief complaint: Extremity Injury, Upper Stated complaint: Left shoulder pain, pain with breathing Time Seen by Provider: 12/18/24 10:54 Mode of Arrival: Ambulatory Source of Information: Patient Description of Symptoms (Recalled from ER Triage Doc. by RN): Patient presents to ED with left shoulder pain. Patient states she sneezed last saturday and her left shoulder started to hurt. Patient rates pain 7/10 at this time has been using tylenol and IBU for pain with little relief. Patient reports no injury, patient is able to raise the arm, and reports no pain radiating. History of Present Illness HPI narrative: Please note that above description of symptoms, in this electronic medical record under categorization of recalled from ER triage doctor by RN are reflective of an initial nursing assessment, however, is not reflective of my full history and physical exam that was personally taken and clarified. Consequentially, this preceding description of symptoms, which may include the patient's categorized chief complaint in the EMR, do not reflect my personal clinical impression, and the ultimate description of history of present illness and patient stated complaints should be deferred to this section of the note. Unless stated otherwise or congruent with this section of the note, additional signs, symptoms, or incongruence should be interpreted as inaccurate with my clinical impression. Related Data Home Medications ?Medication ?Instructions ?Recorded ?Confirmed etonogestrel 68 mg subdermal subdermal 11/03/24 11/03/24 implant (Nexplanon) Previous Rx's ?Medication ?Instructions ?Recorded dexamethasone 6 mg tablet 6 mg PO DAILY #5 tabs 12/18/24 methocarbamol 750 mg tablet 1,500 mg (2 x 750 mg) PO TID 5 12/18/24 days #30 tabs Allergies Allergy/AdvReac Type Severity Reaction Status Date / Time sulfamethoxazole (From Allergy Intermediate i-hives Verified 11/03/24 15:21 Bactrim) trimethoprim (From Bactrim) Allergy Intermediate i-hives Verified 11/03/24 15:21 amoxicillin Allergy Mild Verified 11/03/24 15:21 [facility] Disclaimer: The information contained in this section may have been updated after the patient was seen, as this information can be updated by other users. 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 Surgical History H/O eye surgery Family History Grandmother Cancer Brain Social History Smoking Status: Current every day smoker tobacco type: e-cigarettes alcohol intake: current alcohol intake frequency: holidays/special occasions only substance use type: marijuana current occupational status: unemployed Travel in the last 8 weeks?: None household members: other housing: other Have you lived/traveled outside US in past 30 days?: No Contact w/someone who lives/traveled outside US past 30 days?: No Exposure to someone with infectious disease in past 14 days?: No Do you have a fever (greater than 100.4 F or 38 C)?: No Have you tested positive for COVID-19?: No Exposed to someone with COVID-19 in past 14 days?: No Do you have a sore throat?: No Do you have a cough?: No Do you have any weakness?: No Do you have any diarrhea?: No Are you experiencing any unusual bleeding?: No Do you have any muscle aches/pain?: No Do you have any abdominal pain?: No Are you experiencing loss of taste or smell?: No Other Medical History Have you received the Flu Vaccine for this season: No Have you received the Pneumonia Vaccine: No ROS Obtained: Yes All systems reviewed & no additional complaints except as documented Physical Exam General General appearance: alert Head Head exam: atraumatic and normocephalic Eye Eye exam: Present normal appearance, PERRL and EOMI Neck Neck exam: Present normal inspection, full ROM and trachea midline Respiratory Respiratory exam: Absent respiratory distress, wheezes, stridor, accessory muscle use or prolonged expiratory phase Cardiovascular Cardiovascular exam: Present other (Pulses equal symmetric in upper and lower extremities) Abdominal Exam Abdominal exam: Present soft; Absent distention, tenderness or pulsatile mass Extremities Exam Extremities exam: Absent edema Back Exam Comment: Tenderness on the rhomboid muscles medial to the left scapula as well as midline spinal tenderness distal C and proximal T-spine Neurological Exam Neurological exam: Present alert, oriented X3 and CN II-XII intact; Absent motor sensory deficit Skin Skin exam: Present warm and dry; Absent diaphoresis or erythema Medical Decision Making Medical Records Medical records reviewed: Yes I reviewed the patient's medical records. Screening: Per USPSTF and CDC recommendations, given the prevalence of disease in our region, it is our hospital?s policy to screen for HIV and viral Hepatitis for all patients aged 18 and over and those with ongoing risk factors. Ian Inquiry Pt receiving controlled substance: No Ian was queried for this patient: No Vital Signs: 12/18/24 10:55 12/18/24 11:19 Temperature 98.6 F 98.6 F Temperature Source Oral Oral Pulse Rate 82 Pulse Rate [Right Brachial] 90 Respiratory Rate 20 20 Blood Pressure 132/80 Blood Pressure [Right Arm] 133/105 H Blood Pressure Mean [Right Arm] 114 Blood Pressure Source Automatic Cuff Blood Pressure Source [Right Arm] Automatic Cuff Blood Pressure Position Sitting Blood Pressure Position [Right Arm] Sitting 02 Sat by Pulse Oximetry 100 Oxygen Delivery Method Room Air Room Air Orders (Tests/Meds): ED MEDICATIONS Discontinued Medications Generic Name Dose Route Start Last Admin Trade Name Freq PRN Reason Stop Dose Admin Dexamethasone 10 mg 12/18/24 11:15 12/18/24 11:19 Dexamethasone 4mg Tablet PO 12/18/24 11:16 10 mg ONCE ONE Administration Methocarbamol 750 mg 12/18/24 11:15 12/18/24 11:18 Methocarbamol 500mg Tablet PO 12/18/24 11:16 750 mg ONCE ONE Administration Medical Decision Narrative: 29-year-old female presenting with left shoulder pain. She states that she sneezed a few days prior to this, having pain in her left shoulder/back/left upper extremity. Has been taking Tylenol and Motrin, this has not been helping much. Intermittently having tingling in her digits 4 and 5 of her left upper extremity associated with shooting pains down that side of her arm. No bowel or bladder dysfunction, weakness, or any other complaints. Pain is mild to moderate in intensity and mostly made worse by movement. Made better with application of pressure and stabilization of her left shoulder. History was obtained via conversation with patient. On arrival, patient hemodynamically stable, alert, [oriented x4, ][appropriate, ]GCS [15], moving all extremities spontaneously, pupils equal and reactive to light. Full physical exam performed and significant for well-appearing female no acute distress. Neurologically intact on my exam. Tenderness on the rhomboid muscles medial to the left scapula as well as midline spinal tenderness distal C and proximal T-spine. Differential includes disc herniation, muscle spasm, among others. Because patient neurologically intact on my exam, no weakness, motor and cerebellar exams intact, no complaint of lower extremity or bowel or bladder dysfunction, steroid and muscle relaxer were given here and sent to the pharmacy. I consider doing imaging of the neck and T-spine, but not deemed necessary at this time for the reasons stated above. Close return precautions were discussed and recommend she follow-up with her family doctor. She voiced her understanding. [employer] Operator disclaimer Much of this encounter note is an electronic escort service attendant spoken language to printed text. Electronic escort service attendant of the spoken language may permit errors. Although I have reviewed the note, some errors may still exist. Critical Care Critical Care Time Critical Care Time: No
[2024-12-18 11:19] VITALS: BP 132/80; PULSE 82; RESP 20; TEMP 37; O2SAT 100
[2024-12-18] MEDS: DEXAMETHASONE 4MG TABLET 10 MG PO (11:19)
== END 2024-12-18 11:24 | disposition home or self-care (01) ==
PROVIDERS: Emergency Provider Emergency Medicine; PCP Family Medicine
DX: M25.512 Pain in left shoulder (principal); F17.210 Nicotine dependence, cigarettes, uncomplicated
CPT/HCPCS: 99283; J8540

== ENCOUNTER 2024-12-25 05:44 | Emergency (ER) | payer MEDICAID, SELFPAY ==
[2024-12-25 05:50] VITALS: BP 144/93; PULSE 84; RESP 16; TEMP 36.6; O2SAT 96; BMI 24.2
--- NOTE | 2024-12-25 05:53 | HMH.EDGENADL ---
Discharge Plan Disposition Patient Disposition: Home, Self-Care Prescriptions Prescriptions: New methocarbamol 500 mg tablet 1,500 mg PO Q6H PRN (Reason: pain) Qty: 30 0RF lidocaine 5 % adhesive patch,medicated 1 patch topical DAILY PRN (Reason: pain) Qty: 30 0RF Rx Instructions: leave on most painful area for up to 12 hrs No Action Nexplanon 68 mg implant subdermal dexamethasone 6 mg tablet 6 mg PO DAILY Qty: 5 0RF methocarbamol 750 mg tablet 1,500 mg PO TID 5 Days Qty: 30 0RF Referrals Follow up/Referrals: Rebecca Mays APRN [Primary Care Provider, Family Practice] - See instructions Calvin Willett DO [Staff Physician, Orthopedics] - See instructions Activity Restrictions/Add. Instructions Additional Instructions/Restrictions: Please take muscle relaxers as needed. Please use lidocaine patches as needed. Please call to schedule follow-up with Dr. Willett as soon as possible. Clinical Impressions Clinical Impression: Shoulder pain Back pain Qualifiers: Back pain location: thoracic back pain Chronicity: acute Back pain laterality: left Qualified Code(s): M54.6 - Pain in thoracic spine Instructions Patient Instructions: DI for Neck Pain Print Language Print Language: Samoan Discharge ED Provider: Gracie Garcia Adult HPI General Chief complaint: Neck Pain/Injury Stated complaint: herniated disk, neck pain Time Seen by Provider: 12/25/24 05:50 Mode of Arrival: Ambulatory Source of Information: Patient Description of Symptoms (Recalled from ER Triage Doc. by RN): pt presents to the ED for eval of neck pain that was diagnosed as herniated disc in her neck at this facility x1 week ago. Pt denies following up with PCP. No loss of control of bowel or bladder, reports associated tingling in fingers. History of Present Illness HPI narrative: 29-year-old female presents for continued neck/back pain radiating to her left arm. She was seen here a week ago for same symptoms, noting that it happened suddenly after sneezing a couple days before that and has been worsening. She reports that she was sneezing but also that she felt a sharp severe pain in her neck/thoracic back, midline and paraspinal. She reports now when she coughs or moves or lifts her arm she gets shooting pain down the humerus to the elbow. She also gets some numbness in the left 4th and 5th digits. She reports that she has been taking the steroids and muscle relaxants as prescribed as well as Tylenol and ibuprofen but it does not seem to be helping. She denies weakness, reports the pain is severe. Especially severe with movement. She reports tenderness to palpation and the formation of a knot in her traps/paraspinal muscles on the left at the level of the scapula. Related Data Home Medications ?Medication ?Instructions ?Recorded ?Confirmed etonogestrel 68 mg subdermal subdermal 11/03/24 11/03/24 implant (Nexplanon) Previous Rx's ?Medication ?Instructions ?Recorded dexamethasone 6 mg tablet 6 mg PO DAILY #5 tabs 12/18/24 methocarbamol 750 mg tablet 1,500 mg (2 x 750 mg) PO TID 5 12/18/24 days #30 tabs lidocaine 5 % topical patch 1 patch topical DAILY PRN pain #30 12/25/24 ea methocarbamol 500 mg tablet 1,500 mg (3 x 500 mg) PO Q6H PRN 12/25/24 pain #30 tabs Allergies Allergy/AdvReac Type Severity Reaction Status Date / Time sulfamethoxazole (From Allergy Intermediate i-hives Verified 11/03/24 15:21 Bactrim) trimethoprim (From Bactrim) Allergy Intermediate i-hives Verified 11/03/24 15:21 amoxicillin Allergy Mild Verified 11/03/24 15:21 [facility] Disclaimer: The information contained in this section may have been updated after the patient was seen, as this information can be updated by other users. 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 Surgical History H/O eye surgery Family History Grandmother Cancer Brain Social History Smoking Status: Current every day smoker tobacco type: e-cigarettes alcohol intake: current alcohol intake frequency: holidays/special occasions only substance use type: marijuana current occupational status: unemployed Travel in the last 8 weeks?: None household members: other housing: other Have you lived/traveled outside US in past 30 days?: No Contact w/someone who lives/traveled outside US past 30 days?: No Exposure to someone with infectious disease in past 14 days?: No Do you have a fever (greater than 100.4 F or 38 C)?: No Have you tested positive for COVID-19?: No Exposed to someone with COVID-19 in past 14 days?: No Do you have a sore throat?: No Do you have a cough?: No Do you have any weakness?: No Do you have any diarrhea?: No Are you experiencing any unusual bleeding?: No Do you have any muscle aches/pain?: No Do you have any abdominal pain?: No Are you experiencing loss of taste or smell?: No Other Medical History Have you received the Flu Vaccine for this season: No Have you received the Pneumonia Vaccine: No ROS Obtained: Yes All systems reviewed & no additional complaints except as documented Physical Exam General General appearance: alert and in no apparent distress Head Head exam: atraumatic and normocephalic Eye Eye exam: Present normal appearance, PERRL and EOMI ENT ENT exam: Present normal oropharynx and normal external ear exam Neck Neck exam: Present normal inspection and full ROM Chest Chest inspection: Present normal inspection and symmetric chest wall rise; Absent tenderness Respiratory Respiratory exam: Present normal lung sounds bilaterally; Absent respiratory distress Cardiovascular Cardiovascular exam: Present regular rate and normal rhythm Abdominal Exam Abdominal exam: Present soft; Absent distention, tenderness or guarding Extremities Exam Extremities exam: Present normal inspection and full ROM; Absent edema or joint swelling Back Exam Back exam: Present normal inspection and tenderness (Significant tenderness to the patient of the low cervical and upper thoracic spine with associated left-sided paraspinal between spine.) Neurological Exam Neurological exam: Present alert and oriented X3; Absent motor sensory deficit (Patient has intact strength and sensation in the bilateral upper extremities on exam, but reports intermittent numbness in the left 4th and 5th digits) Psychiatric Psychiatric exam: Present normal affect and normal mood Skin Skin exam: Present warm, dry and normal color Lymphatic Lymphatic Findings: no adenopathy Medical Decision Making Medical Records Medical records reviewed: Yes I reviewed the patient's medical records. Screening: Per USPSTF and CDC recommendations, given the prevalence of disease in our region, it is our hospital?s policy to screen for HIV and viral Hepatitis for all patients aged 18 and over and those with ongoing risk factors. Ian Inquiry Pt receiving controlled substance: No Ian was queried for this patient: No Vital Signs: 12/25/24 05:50 Temperature 98 F Temperature Source Oral Pulse Rate [Radial] 84 Respiratory Rate 16 Blood Pressure [Right Arm] 144/93 H Blood Pressure Mean [Right Arm] 110 Blood Pressure Position [Right Arm] Sitting 02 Sat by Pulse Oximetry 96 Oxygen Delivery Method Room Air Lab Data Lab results reviewed: Yes I reviewed the patient's lab results. Orders (Tests/Meds): ED MEDICATIONS Generic Name Dose Route Start Last Admin Trade Name Freq PRN Reason Stop Dose Admin Lidocaine 1 each 12/25/24 07:02 Lidocaine 5% Transdermal Patch TD 12/25/24 07:03 ONCE ONE Methocarbamol 1,500 mg 12/25/24 07:02 Methocarbamol 500mg Tablet PO 12/25/24 07:03 ONCE ONE ORDERS Category Date Time Status CT cervical spine wo con Stat Cat Scan 12/25/24 06:[address] thoracic spine wo con Stat Cat Scan 12/25/24 06:01 Completed Medical Decision Narrative: 29-year-old female without significant past medical history presents for approximately 10 days of neck/back pain, left scapular pain, radiating down the left arm. Sudden onset after sneezing. History was obtained via interactive discussion with patient. On arrival, patient is [afebrile, hemodynamically stable, satting appropriately, alert, oriented x4, GCS 15], moving all extremities spontaneously. Full physical exam performed and significant for intact strength and sensation and range of motion left upper extremity. She does have significant tenderness palpation of the lower cervical and upper thoracic spine as well as paraspinal muscular tenderness between the spine and the scapula. Symptoms exacerbated by active range of motion of the left shoulder. Tenderness is greatest in the area of the rhomboids and levator muscles Differential includes but is not limited to disc herniation, brachial plexopathy, injury to the shoulder girdle muscles. Workup initiated including CT C-spine, CT thoracic spine. I considered ordering a test but patient reports that she has a Nexplanon in place and does not want to wait for test.. On re-evaluation, patient [remains afebrile, HD stable.] Imaging independently interpreted by me and significant for no obvious spinal fracture or canal stenosis. See radiology read for full review of final results. MRI was considered, but deemed unnecessary due to low concern for spinal cord lesion. Given patient history, exam and workup, patient's presentation most likely represents injury to the shoulder girdle muscles or possibly disc herniation. Patient was given Robaxin and lidocaine patches in the ER instructed to call the follow-up with Dr. Willett's office for further assessment. Prescription was sent for Robaxin and lidocaine patches. Procedures Risk/Benefits of Procedure(s) Were Explained: Yes Critical Care Critical Care Time Critical Care Time: No
--- NOTE | 2024-12-25 06:01 | CT_ITS ---
PROCEDURE INFORMATION: Exam: CT Cervical Spine Without Contrast Exam date and time: 12/25/2024 6:19 AM Age: 29 years old Clinical indication: Neck pain; Additional info: Neck pain, left arm radiation TECHNIQUE: Imaging protocol: Computed tomography of the cervical spine without contrast. Radiation optimization: All CT scans at this facility use at least one of these dose optimization techniques: automated exposure control; mA and/or kV adjustment per patient size (includes targeted exams where dose is matched to clinical indication); or iterative reconstruction. COMPARISON: CR XR CHEST PORTABLE 02/14/2019 5:24 AM FINDINGS: Bones: No acute fracture. Normal alignment. No significant disc bulge or herniation. No severe spinal canal stenosis. No significant neural foraminal narrowing. Lungs: Lung apices are normal. Soft tissues: Unremarkable. IMPRESSION: No acute cervical spine fracture.
--- NOTE | 2024-12-25 06:01 | CT_ITS ---
PROCEDURE INFORMATION: Exam: CT Thoracic Spine Without Contrast Exam date and time: 12/25/2024 6:22 AM Age: 29 years old Clinical indication: Pain in thoracic spine; Additional info: Midline/paraspinal pain, radiates to left arm, TECHNIQUE: Imaging protocol: Computed tomography of the thoracic spine without contrast. Radiation optimization: All CT scans at this facility use at least one of these dose optimization techniques: automated exposure control; mA and/or kV adjustment per patient size (includes targeted exams where dose is matched to clinical indication); or iterative reconstruction. COMPARISON: CT CERVICAL SPINE WO CON 12/25/2024 6:19 AM FINDINGS: Bones/joints: No acute fracture. Normal alignment. No significant disc bulge or herniation. No severe spinal canal stenosis. No significant neural foraminal narrowing. Soft tissues: Unremarkable. IMPRESSION: No acute thoracic spine fracture.
[2024-12-25 07:05] VITALS: BP 140/90; PULSE 98; RESP 16; TEMP 36.6; O2SAT 99
[2024-12-25] MEDS: METHOCARBAMOL 500MG TABLET 1500 MG PO (07:06)
[2024-12-25] MEDS: LIDOCAINE 5% TRANSDERMAL PATCH 1 EACH TD (07:07)
== END 2024-12-25 07:14 | disposition home or self-care (01) ==
PROVIDERS: Emergency Provider Student in an Organized Health Care Education/Training Program; PCP Family Medicine
DX: M54.6 Pain in thoracic spine (principal); F17.290 Nicotine dependence, other tobacco product, uncomplicated
CPT/HCPCS: 72125; 72128; 99284

== ENCOUNTER 2024-12-28 14:06 | Outpatient (CLI) | payer MEDICAID, SELFPAY ==
--- NOTE | 2024-12-28 14:09 | XR_ITS ---
FINAL REPORT CLINICAL HISTORY: left shoulder pain. Has possible herniated disc in c-spine. Numbness/tingling. FINDINGS: LEFT SHOULDER 3 views of the left shoulder were obtained. There is no acute fracture or dislocation. Visualized joint spaces are normally aligned. Soft tissues are unremarkable. IMPRESSION: No acute bony abnormality. Reviewed, Interpreted and Dictated by Matthieu Wilder MD Transcribed by Svetlana Wilcox Authenticated and [facility]
== END 2024-12-28 23:59 | disposition home or self-care (01) ==
LOC: RAD 14:07
PROVIDERS: PCP Family Medicine; Visit Provider Physician Assistant
DX: M25.512 Pain in left shoulder (principal)
CPT/HCPCS: 73030

== ENCOUNTER 2025-01-20 14:04 | Emergency (ER) | payer MEDICAID, SELFPAY ==
[2025-01-20 14:11] VITALS: BP 140/93; PULSE 79; RESP 17; TEMP 37.3; O2SAT 100; BMI 25.8
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
[2025-01-20] MEDS: KETOROLAC 30MG/ML VIAL 15 MG IM (15:09)
[2025-01-20] MEDS: DEXAMETHASONE 4MG/ML 1ML VIAL 10 MG IM (15:09)
[2025-01-20 15:27] VITALS: BP 140/93; PULSE 79; RESP 17; TEMP 37.2
== END 2025-01-20 15:28 | disposition home or self-care (01) ==
PROVIDERS: Emergency Provider Student in an Organized Health Care Education/Training Program; PCP Family Medicine
DX: M54.12 Radiculopathy, cervical region (principal); F17.290 Nicotine dependence, other tobacco product, uncomplicated
CPT/HCPCS: 96372; 99283; J1100; J1885

== ENCOUNTER → 2025-01-26 14:29 | Outpatient (RCR) | payer MEDICAID, SELFPAY ==
--- NOTE | 2025-01-26 15:59 | HMH.PTOPEV ---
PT Outpatient Evaluation Rehab PT Outpatient Evaluation Start: 01/26/25 14:52 Freq: Status: Active Protocol: Document 01/26/25 14:52 LANEY (Rec: 01/26/25 15:59 [email or web address] [id number]) E-signed By Francis Hodge, PT Outpatient Therapy Subjective History Subjective History Pt is a 29 yof who is referred to [facility] outpatient PT with a diagnosis of a Cervical Radiculopathy affecting her L arm. Pt reports that her symptoms began approximately 6 weeks ago after she sneezed. The pt describes her symptoms as a shooting/tingling sensation that goes through her shoulder and into her 1st and 2nd digits. The pt reports that her symptoms are fairly constant but worsened with lifting, moving her head/ neck and sleeping. Pt reports that her symptoms have progressively worsened in the past 6 weeks. Pt has had a cervical CT, which was unremarkable. Pt reports that she is coming to PT in order to get approval for an MRI . Pt reports that she has been to the ED 3x. 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 Chief Complaint Pain,Paresthesia Symptom Type Burning,Numbness,Tingling Symptoms Relieved By Prescription Meds Symptoms Aggravated Prone,Supine,Physical Activity By Prior Functional None Limitations Current Functional Reaching,Lifting,Housework,Driving Limitations Symptom Description Constant but Variable,Activity Dependent Level of pain today 7 (0-10) Pain scale - at its 4 best (0-10) Pain scale - at its 10 worst (0-10) Cervical Eval Palpation Cervical Muscles L Cervical Paraspinal,L CT Junction Cervical/Thoracic Tenderness Palpation Findings Posture Head/C-Spine Posture Neutral Position Sitting Position Head/C-Spine Posture Neutral Position Standing Position Flexibility Deficits Upper Trapezius (R) Moderate Tightness,(L) Moderate Tightness Muscle Length Pectoralis Minor (R) Moderate Tightness,(L) Moderate Tightness Muscle Length Passive Joint Mobility Cervical PIVM Dec: L C4/5 L C5/6 L C6/7 AROM Cervical Spine 0 Extension Active Range of Motion ( degrees) Cervical Spine 30 Flexion Active Range of Motion (degrees) Cervical Spine Right 25 Lateral Flexion Active Range of Motion (degrees) Cervical Spine Left 10 Lateral Flexion Active Range of Motion (degrees) Cervical Spine Right 10 Rotation Active Range of Motion ( degrees) Cervical Spine Left 10 Rotation Active Range of Motion ( degrees) MMT Left Deltoid (C5) 4+ Good+ Biceps Brachii 3+ Fair+ Strength Grade Wrist Extension 3+ Fair+ Strength Grade Triceps Brachii 4+ Good+ Strength Grade Wrist Flexion 5 Normal Strength Grade Extensor Pollicis 5 Normal Longus Strength Grade Finger Abduction 5 Normal Strength Grade DTR Rt Biceps 1+ Lt Biceps 1+ Rt Brachioradialis 1+ Lt Brachioradialis 1+ Rt Triceps 1+ Lt Triceps 1+ Altered Sensation Bilateral Upper extremity C6 Dermatomes Comment Paresthesia along L C6 Dermatome Special Test C-Spine Foraminal Positive Left Compression ( [place]) Test C-spine Verterbral Left P/A Center [place] Accessory Movements that Elicit Symptoms C-Spine Foraminal Negative Distraction Test C-Spine Compression Positive Left Test Shoulder Abduction Negative Left,Negative Right Relief Test Neck Disability Index Neck Disability Index Section 1: Pain The pain is fairly severe at the moment Intensity Section 2: Personal It is painful to look after myself and I am slow and Care (washing, careful dressing, etc.) Section 3: Lifting I cannot lift or carry anything Section 4: Reading I can't read as much as I want because of moderate pain in my neck Section 5: Headaches I have moderate headaches, which come frequently Section 6: I can concentrate fully when I want to with no Concentration difficulty Section 7: Work I cannot do my usual work Section 8: Driving I can't drive my car as long as I want because of moderate pain in my Section 9: Sleeping My sleep is completely disturbed (5-7 hrs sleepless) Section 10: I can hardly do any recreation activities because of Recreation pain in my neck NDI Score 31 Outpatient Therapy Assessment Impairments Problems/ Palpation Tenderness,Impaired Range of Motion,Impaired Impairmments Strength,Impaired Driving,Impaired Lifting,Impaired Household Care,Impaired Work Activities,Subjective C/O Pain Prognosis Rehab Potential Good Comment w HEP compliance Clinical Impression Consistent with Yes Diagnosis Consistent with Cervical Radiculopathy (M54.12) Additional details: Signs and symptoms suggestive of C6 Nerve Root Involvement on the L side. Short Term Goals Number of Weeks 4 Decreased Palpation Yes: 2-3/4 to TTP assessment above Tenderness Increase Range of Yes: improve by 5-10 degrees in all Cervical planes Motion Increase Strength Yes: Biceps/Wrist Extensors to 4/5 Improve Neck Yes: <26 Disability Index Score Decrease Subjective Yes: 5/10 with above assessment C/O Pain Improve Self Care/ Yes Self Management Patient to be Ind w/ Yes HEP Care Home Goals Number of Weeks 8 Decreased Palpation Yes: 0-1/4 to TTP assessment Tenderness Increase Range of Yes: Improve CROM by 10-20 degrees in all planes Motion Increase Strength Yes: 4+/5 to L Biceps and Wrist Extensors Increase Ability to Yes Drive/Ride in Car Improve Ability For Yes Household Care Improve Tolerance to Yes: without increasing symptoms Work Activities Improve Neck Yes: <21 Disability Index Score Decrease Subjective Yes: 2-3/10 with above assessment C/O Pain Patient to be Ind w/ Yes Advanced HEP Outpatient Therapy Plan of Care Treatment Plan May Include Therapeutic Exercise Yes Including Home Exercise Program Manual Therapy Yes Techniques Neuromuscular Re- Yes education Therapeutic Yes Activities to Return to Previous Functional/Work Level Gait Training Yes ADL/Self Care Yes Education Mechanical Traction Yes Dry Needling Yes Thermal Modalities Yes Electrical Yes Stimulation Ultrasound/ Yes Phonophoresis Iontophoresis Yes Massage Yes Manual Lymphatic Yes Drainage Eval/Re-Eval Yes Frequency Times per week 2 Duration Number of Weeks 8 Addendums This patient is a No candidate for social or vocational rehab ? Patient/Guardian Yes verbally acknowledges understanding of treatment program and consents to further treatment? Patient/Guardian Yes verbally acknowledges understanding of diagnosis, prognosis and goals for treatment? Eval Complexity PT Charges 40798 - Moderate Complexity Shoulder/Elbow Eval Shoulder Objective Measurements Elbow Objective Measurements PHYSICIAN CERTIFICATION: I certify the specified therapy services for Bisi Barnes are required, authorized, and reviewed every 30 days.
== END ==
LOC: PT 14:29
PROVIDERS: PCP Family Medicine; Visit Provider Physician Assistant Surgical
DX: M54.12 Radiculopathy, cervical region (principal)
CPT/HCPCS: 97162

== ENCOUNTER 2025-02-01 12:56 | Outpatient (POV) | payer MEDICAID, SELFPAY ==
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
[2025-02-01 13:46] VITALS: BP 123/81; PULSE 99; RESP 18; O2SAT 98; BMI 25.8
== END 2025-02-01 23:59 | disposition home or self-care (01) ==
PROVIDERS: PCP Family Medicine; Visit Provider Nurse Practitioner Family
DX: M54.12 Radiculopathy, cervical region (principal); M54.6 Pain in thoracic spine; M25.519 Pain in unspecified shoulder
CPT/HCPCS: 99202; G0463

== ENCOUNTER 2025-02-05 11:49 | Outpatient (CLI) | payer MEDICAID, SELFPAY ==
[2025-02-05 15:09] LABS: Coronavirus 19, PCR Not Detected (NotDetected); Influenza A, PCR Not Detected (NotDetected); Influenza B, PCR Not Detected (NotDetected)
== END 2025-02-05 23:59 | disposition home or self-care (01) ==
LOC: LAB.DROPOF 02-06 10:12
PROVIDERS: PCP Nurse Practitioner Family; Visit Provider Nurse Practitioner Family
DX: J06.9 Acute upper respiratory infection, unspecified (principal)
CPT/HCPCS: 87631

== ENCOUNTER 2025-02-22 09:00 | Outpatient (RCR) | payer MEDICAID, SELFPAY | END 2025-02-22 23:59 | disposition home or self-care (01) | LOC: PT 09:00 | PROVIDERS: Visit Provider Physician Assistant Surgical | DX: M54.2 Cervicalgia (principal) | CPT/HCPCS: 97012; 97110 ==

== ENCOUNTER 2025-03-02 10:42 | Day surgery (SDC) | payer MEDICAID, SELFPAY ==
[2025-03-02 10:49] VITALS: BP 141/87; PULSE 75; PULSE 80; RESP 18; O2SAT 100
[2025-03-02] MEDS: IOPAMIDOL-200 (41%);10ML VIAL 10 ML IV (10:54)
[2025-03-02 10:55] VITALS: BP 120/82; PULSE 87; RESP 18; O2SAT 99; BMI 25.8
[2025-03-02] MEDS: DEXAMETHASONE 10MG/ML 1ML VIAL 10 MG (11:01)
[2025-03-02 11:08] VITALS: BP 129/89; PULSE 82; RESP 18; O2SAT 100
--- NOTE | 2025-03-02 11:18 | P.PCN_ITS ---
Procedure Date: 03/02/25 Time: 11:00 Anesthesiologist:: Terry Baca CRNA Complications:: None Pre-procedure Diagnosis:: Degenerative disc cervical spine multilevels. Cervical radiculopathy. Post-procedure Diagnosis:: Same. Indications for Procedure:: Patient is a pleasant 29-year-old female who comes our clinic today for cervical epidural steroid injection. Patient describes posterior cervical neck pain as well as left shoulder and arm radicular symptoms. She rates her pain 7/10. Procedure Details:: Procedure:Cervical epidural steroid injection Informed consent was obtained and the risks and benefits of the procedure were explained to the patient. The patient was taken to the procedure room and noninvasive monitors placed, including noninvasive blood pressure cuff and pulse oximeter. The neck was prepped using Chloraprep as a cleansing solution. The C6- C7 interspace was viewed using fluroscopy. The skin and subcutaneous tissues were anesthetized using lidocaine 1.5% and a 25-gauge needle. After this an 18- gauge Touhy epidural needle was placed into the C6-C7 interspace under fluroscopy guidance and advanced using loss of resistance to air until the epidural space was encountered. After confirmation of needle placement in the epidural space using contrast dye, dexamethasone 10 mg ( 1 ML) was incrementally injected into the cervical epidural space.~ The patient tolerated the procedure well with no complications. The patient was observed in the Pain Clinic and then discharged home neurologically intact. Plan and Disposition:: Patient was discharged without incident.
== END 2025-03-02 11:08 | disposition home or self-care (01) ==
PROVIDERS: PCP Family Medicine; Visit Provider Nurse Anesthetist, Certified Registered
DX: M54.12 Radiculopathy, cervical region (principal); M50.30 Other cervical disc degeneration, unspecified cervical region; M25.519 Pain in unspecified shoulder; M54.6 Pain in thoracic spine; F17.290 Nicotine dependence, other tobacco product, uncomplicated; Z97.5 Presence of (intrauterine) contraceptive device; Z79.899 Other long term (current) drug therapy; Z88.2 Allergy status to sulfonamides; Z88.1 Allergy status to other antibiotic agents; Z88.0 Allergy status to penicillin
CPT/HCPCS: 62321; J1100; Q9966

== ENCOUNTER 2025-03-10 09:00 | Outpatient (RCR) | payer MEDICAID, SELFPAY | END 2025-03-10 23:59 | disposition home or self-care (01) | LOC: PT 09:00 | PROVIDERS: PCP Family Medicine; Visit Provider Nurse Practitioner Family | DX: M54.12 Radiculopathy, cervical region (principal) | CPT/HCPCS: 97110 ==

== ENCOUNTER 2025-05-03 13:06 | Emergency (ER) | payer MEDICAID, SELFPAY ==
[2025-05-03 13:11] VITALS: BP 143/94; PULSE 84; RESP 24; TEMP 36.4; O2SAT 97; BMI 25.8
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
[2025-05-03] MEDS: DEXAMETHASONE 4MG/ML 1ML VIAL 10 MG IM (13:40)
[2025-05-03 14:02] VITALS: BP 120/78; PULSE 80; RESP 20; TEMP 36.8; O2SAT 98
== END 2025-05-03 14:03 | disposition home or self-care (01) ==
PROVIDERS: Emergency Provider Student in an Organized Health Care Education/Training Program; PCP Family Medicine
DX: M54.2 Cervicalgia (principal); F17.290 Nicotine dependence, other tobacco product, uncomplicated
CPT/HCPCS: 96372; 99283; J1100